=== PATIENT | female | born 1945 | race Caucasian/White ===

== ENCOUNTER → 2017-08-16 | Outpatient (CLI) | payer MEDICARE, OTHER | END | disposition home or self-care (01) | LOC: CT 11:30 | DX: L89.159 Pressure ulcer of sacral region, unspecified stage (principal); I10 Essential (primary) hypertension; E11.9 Type 2 diabetes mellitus without complications; E78.5 Hyperlipidemia, unspecified | CPT/HCPCS: 72192 ==

== ENCOUNTER → 2018-08-20 | Outpatient (CLI) | payer MEDICARE, OTHER ==
[2017-05-16 15:00] VITALS: BP 150/73
[~2018-08-20] MED LIST: ACET325T9 PO; ALBU2.5V14 NEB; AMLO10TA8 PO; ASCO500V4 IJ; Ascorbic Acid PO; BACL20TA PO; CEFP200T PO; CHOL2000 PO; CHOL500021 PO; DOXY100T PO; ESCITALOPRAM OX10 MG PO; FAMO20TA5 PO; FERR325T14 PO; FLUD0.1T PO; LACT1CAP45 PO; LEVO500T8 PO; LINZESS145 MCG PO; LOPE1LIQ7 PO; MAGN400O7 PO; MULT-658 PO; NYST1POW2 PO; PANT40TA3 PO; POLY17PO28 PO; POTA25TA4 PO; PRED20TA PO; SUCR1ORA5 PO; TOLT2TAB4 PO; VIT1TABL94 PO
--- NOTE | 2018-08-20 09:03 | RAD ---
Right ankle, 2 views, 08/20/2018: HISTORY: Open ulcers There is severe patchy bony demineralization. Patient positioning is suboptimal due to the patient's inability to fully cooperate. No fracture, dislocation or destructive bony lesion is identified on this limited exam. Electronically signed by: Chandra Baker MD (08/20/2018 9:01 AM) [facility]
--- NOTE | 2018-08-20 09:06 | RAD ---
Left hip, 2 views, 08/20/2018: HISTORY: Open ulcers There is severe bony demineralization. Mild degenerative change is present at the hip joint. No fracture or dislocation is identified. No destructive bony lesion is seen. IMPRESSION: 1. Demineralization. 2. No acute bony abnormality is detected. Electronically signed by: Chandra Baker MD (08/20/2018 9:03 AM) [facility]
--- NOTE | 2018-08-21 08:32 | RAD ---
Three-phase bone scan, 08/20/2018: HISTORY: Right ankle and left ischio wounds Imaging of both feet was performed following IV injection of 26 mCi of technetium 99m MDP. The study is compromised by difficulties in positioning of this contracted patient. No previous bone scan is available for comparison purposes. The following findings are delineated: 1. The dynamic flow study demonstrates generalized hyperemia about the right ankle. This was also evident on the blood pool images. There is also increased activity at the right ankle on the delayed images, although comparison to the earlier images is difficult due to differences in patient positioning. The degree of increased activity at the right ankle on delayed images appears similar to that seen on the blood pool images suggesting cellulitis. A component of underlying osteomyelitis cannot be excluded. 2. There is a lesser degree of increased activity at the left ankle on all of the phases. This probably reflects arthritis. 3. Several delayed images of the pelvis were also obtained. There is abnormal activity projected over the perineal region at the midline and along the surface of the patient posteriorly at the pelvic and buttock levels. This may represent a combination of soft tissue inflammation and urine contamination. On the posterior view there is markedly increased activity projected over the left ischium raising the possibility of osteomyelitis related to the patient's known wound at that level. Electronically signed by: Chandra Baker MD (08/21/2018 8:29 AM) [facility]
== END | disposition home or self-care (01) ==
LOC: NM 08:13
PROVIDERS: ATTEND Emergency Medicine Undersea and Hyperbaric Medicine
DX: L97.319 Non-pressure chronic ulcer of right ankle with unspecified severity (principal); M81.8 Other osteoporosis without current pathological fracture; M16.12 Unilateral primary osteoarthritis, left hip
CPT/HCPCS: 73502; 73600; 78315; A9503

== ENCOUNTER → 2019-05-14 | Outpatient (CLI) | payer MEDICARE, OTHER ==
[2017-05-16 15:00] VITALS: BP 150/73
[~2019-05-14] MED LIST changes: -PANT40TA3 PO; +PANT40TA77 PO
--- NOTE | 2019-05-14 12:19 | RAD ---
MRI study of the right ankle without contrast Clinical indications: Small open ulcer overlying the lateral malleolus. TECHNIQUE: Noncontrast MRI sequences of the right ankle were performed in all 3 planes. FINDINGS: There is a superficial defect of the lateral soft tissues consistent with the clinical history of a skin ulcer. There is underlying soft tissue thickening. No round fluid collection is seen to indicate a soft tissue abscess however. There is minimal T2 bone marrow edema and T1 marrow signal abnormality of the underlying lateral aspect of the epiphysis. However, the overlying cortex appears intact. Therefore, this may represent mild stress reaction bone marrow edema as opposed to osteomyelitis at this time. No fracture is evident. The mortise ankle joint is intact. No abnormal mortise ankle joint effusion is seen. No abnormal subtalar joint effusion is seen. Sinus tarsi is unremarkable. The peroneal and extensor and flexor tendons are intact. There is increased signal within the Achilles tendon. There is a small high-grade partial tear of the Achilles tendon at the attachment to the posterior aspect of the calcaneus. This tear extends through at least 75% of the thickness of the tendon. The defect measures 3 mm transversely. There is mild adjacent soft tissue edema and there is mild stress reaction bone marrow edema of the adjacent calcaneus. Plantar aponeurosis is intact. IMPRESSION: Soft tissue ulcer of the lateral aspect of the right ankle overlying the lateral malleolus. No underlying soft tissue abscess is seen. There is mild underlying stress reaction bone marrow edema involving the distal epiphysis of the right fibula. However overlying cortex appears intact and therefore no definite osteomyelitis is seen at this time. This may represent stress reaction bone marrow edema. Small high-grade partial tear of the distal Achilles tendon. Electronically signed by: Cory Dyer MD (05/14/2019 12:15 PM) [id number]
== END | disposition home or self-care (01) ==
LOC: MRI 08:41
PROVIDERS: ATTEND Internal Medicine
DX: S86.011A Strain of right Achilles tendon, initial encounter (principal); L97.319 Non-pressure chronic ulcer of right ankle with unspecified severity; X58.XXXA Exposure to other specified factors, initial encounter; Y93.89 Activity, other specified; Y92.89 Other specified places as the place of occurrence of the external cause; Y99.8 Other external cause status
CPT/HCPCS: 73721

== ENCOUNTER 2019-12-30 09:25 | Inpatient (IN) | payer MEDICARE, OTHER ==
[~2019-12-30] VITALS: Ht 152.4 cm; Wt 51.2 kg
[2019-12-30] VITALS (16 sets, daily range): BP systolic 75–133; BP diastolic 32–94
[2019-12-30] MEDS ORDERED: IV NORMAL SALINE 1000ML BAG 1,000 ML IV SCH (09:39)
--- NOTE | 2019-12-30 09:44 | PHYS DOC ---
Past Medical History Past Medical History: CAD, CVA Additional Past Medical Histor: ms,macular deneneration,major depressive disorder,quad,constipation,MS Past Surgical History: Other Additional Past Surgical Histo: unknown Smoking Status: Never Smoker Alcohol Use: None Drug Use: None General Adult EDM: Chief Complaint: DYSPNEA/RESPIRATOY DISTRESS HPI: HPI: Patient is a 74 year old female who presents with a chief complaint of respiratory failure. Patient tested positive for COVID-19 19 days ago but had reportedly gotten better and now has had increased shortness of breath over the last 3 days. Patient arrives via EMS from a group home. Patient sats were in the 70s and respiratory was in the 50s and patient was placed on a nonrebreather. EMS unable to get IV access. Patient is a DO NOT INTUBATE but full code otherwise. Remainder history and review of systems unobtainable due to altered mental status Review of Systems: Review of Systems: Review of systems unobtainable due to altered mental status Heart Score: Risk Factors: Risk Factors: DM, Current or recent (<one month) smoker, HTN, HLP, family history of CAD, obesity. Risk Scores: Score 0 - 3: 2.5% MACE over next 6 weeks - Discharge Home Score 4 - 6: 20.3% MACE over next 6 weeks - Admit for Clinical Observation Score 7 - 10: 72.7% MACE over next 6 weeks - Early Invasive Strategies Current Medications: Current Medications Medications (Trade) Dose Ordered Sig/Sudha Start Time Stop Time Status Last Admin Dose Admin Cefepime HCl (Maxipime) 2 gm 1X ONCE 12/30/19 09:45 12/30/19 09:46 UNV Levofloxacin/ Dextrose 150 ml @ 100 mls/hr 1X ONCE 12/30/19 09:45 12/30/19 11:14 UNV Allergies: Allergies: Allergies Coded Allergies Type Severity Reaction Last Updated Verified Penicillins Allergy Intermediate 01/31/17 Yes Sulfa (Sulfonamide Antibiotics) Allergy Intermediate 01/06/16 Yes codeine Allergy Intermediate 05/12/17 Yes iodine Allergy Intermediate 01/06/16 Yes I S O L A T I O N *CONTACT* Allergy Unknown 05/13/17 Yes Physical Exam: PE: Constitutional: Cachectic in respiratory distress HENT: Normocephalic, dry oral mucosa with food in mouth Eyes: Mild matting to the eyes Neck: No meningeal signs Cardiovascular: Tachycardic, thready peripheral pulses Lungs & Thorax: Diminished breath sounds bilaterally scattered rhonchi Abdomen soft, no tenderness, no masses, no pulsatile masses. [] Skin: Pale, diaphoretic, pressure sores to bilateral heels Back: No tenderness, no CVA tenderness. [] Extremities: No tenderness, no cyanosis, no clubbing, ROM intact, no edema. [] Neurologic: Alert and oriented X 0, frail, generalized weakness, contracted Psychologic: Unable to assess Current Patient Data: Labs: Laboratory Tests Test 12/30/19 10:00 12/30/19 12:05 12/30/19 12:15 O2 Saturation 90 % Arterial Blood pH 7.41 Arterial Blood pCO2 at Patient Temp 37 mmHg Arterial Blood pO2 at Patient Temp 62 mmHg Arterial Blood HCO3 22 mmol/L Arterial Blood Base Excess -2 mmol/L Oxyhemoglobin 89.1 % Methemoglobin 0.4 % Carbon Monoxide, Quantitative 0.0 % FiO2 100 Troponin I Quantitative 0.033 ng/mL Procalcitonin 0.51 ng/mL White Blood Count 20.9 x10^3/uL Red Blood Count 4.88 x10^6/uL Hemoglobin 11.7 g/dL Hematocrit 39.3 % Mean Corpuscular Volume 81 fL Mean Corpuscular Hemoglobin 24 pg Mean Corpuscular Hemoglobin Concent 30 g/dL Red Cell Distribution Width 20.0 % Platelet Count 347 x10^3/uL Neutrophils (%) (Auto) 90 % Lymphocytes (%) (Auto) 5 % Monocytes (%) (Auto) 4 % Eosinophils (%) (Auto) 0 % Basophils (%) (Auto) 0 % Neutrophils # (Auto) 18.8 x10^3/uL Lymphocytes # (Auto) 1.1 x10^3/uL Monocytes # (Auto) 0.9 x10^3/uL Eosinophils # (Auto) 0.0 x10^3/uL Basophils # (Auto) 0.0 x10^3/uL Segmented Neutrophils % 78 % Band Neutrophils % 11 % Lymphocytes % 7 % Monocytes % 4 % Toxic Granulation Slight Platelet Estimate Adequate Hypochromasia Slight Anisocytosis Slight Prothrombin Time 17.8 SEC Prothromb Time International Ratio 1.5 Activated Partial Thromboplast Time 32 SEC Fibrinogen 467 mg/dL D-Dimer (Mer) 3.40 ug/mlFEU Sodium Level 165 mmol/L Potassium Level 3.5 mmol/L Chloride Level 126 mmol/L Carbon Dioxide Level 24 mmol/L Anion Gap 15 Blood Urea Nitrogen 40 mg/dL Creatinine 1.5 mg/dL Estimated GFR (Cockcroft-Gault) 34.1 BUN/Creatinine Ratio 27 Glucose Level 183 mg/dL Lactic Acid Level 4.1 mmol/L Calcium Level 8.1 mg/dL Ferritin 520 ng/mL Total Bilirubin 1.0 mg/dL Aspartate Amino Transf (AST/SGOT) 72 U/L Alanine Aminotransferase (ALT/SGPT) 55 U/L Alkaline Phosphatase 93 U/L Lactate Dehydrogenase 300 U/L Creatine Kinase 73 U/L [id number]-Zzk-[id number]-Type Natriuretic Peptide 1530 pg/mL Total Protein 7.0 g/dL Albumin 2.3 g/dL Albumin/Globulin Ratio 0.5 Lipase 133 U/L Current Medications Medications (Trade) Dose Ordered Sig/Sudha Route PRN Reason Start Time Stop Time Status Last Admin Dose Admin Levofloxacin/ Dextrose 150 ml @ 100 mls/hr 1X ONCE IV 12/30/19 09:45 12/30/19 11:14 DC 12/30/19 11:00 Cefepime HCl (Maxipime) 2 gm 1X ONCE IVP 12/30/19 09:45 12/30/19 09:46 DC 12/30/19 10:55 Sodium Chloride 1,000 ml @ 1,650 mls/hr Q37M IV 12/30/19 09:39 12/30/19 10:39 DC 12/30/19 09:39 Norepinephrine Bitartrate 8 mg/ Dextrose 258 ml @ 10.643 mls/ hr 1X ONCE IV 12/30/19 12:15 12/31/19 12:29 12/30/19 12:33 Vital Signs: Vital Signs Date Time Temp Pulse Resp B/P (MAP) Pulse Ox O2 Delivery O2 Flow Rate FiO2 12/30/19 12:15 122 46 82/53 (63) 89 NonRebreather Mask 15.0 12/30/19 12:00 120 48 93/42 (59) 90 NonRebreather Mask 15.0 12/30/19 11:45 118 54 85/35 (52) 91 NonRebreather Mask 15.0 12/30/19 11:30 122 40 98/40 (59) 77 NonRebreather Mask 15.0 12/30/19 11:15 122 46 104/74 (84) 92 NonRebreather Mask 15.0 12/30/19 10:54 124 44 103/40 (61) 97 NonRebreather Mask 15.0 12/30/19 10:27 130 45 97/72 (80) 97 NonRebreather Mask 15.0 12/30/19 10:00 93 NonRebreather Mask 15.0 12/30/19 09:57 135 48 102/47 (65) 95 NonRebreather Mask 15.0 12/30/19 09:55 135 50 89/51 (64) 91 NonRebreather Mask 15.0 12/30/19 09:25 100.7 137 50 89/51 (64) 55 NonRebreather Mask 15.0 100.7 EKG: EKG: EKG interpreted by me sinus tachycardia with a rate of 135 normal axis normal intervals nonspecific ST changes [] Radiology/Procedures: Radiology/Procedures: [][facility] [address] [place] [address] IMAGING REPORT Signed PATIENT: JAIDA ZAMARRIPA SACCOUNT: [id number] : 1945 LOCATION: ER AGE: 74 SEX: F EXAM STATUS: REG ER ORD. PHYSICIAN: MINA FIGUEROA MD REASON: soa, covid pos 12/10 PROCEDURE: PORTABLE CHEST 1V AP chest. HISTORY: Short of air, Covid positive Heart is normal in size. The patient is rotated to the right. There is no pleural effusion. There are no confluent infiltrates. IMPRESSION: 1. No acute infiltrates. Electronically signed by: Carlos Rojas MD (12/30/2019 11:34 AM) [id number] DICTATED and SIGNED BY: CARLOS ROJAS MD DATE: 12/30/19 1134 Course & Med Decision Making: Course & Med Decision Making Pertinent Labs and Imaging studies reviewed. (See chart for details) [] Reassessment at 10:55 AM: Blood pressure now around 100 systolic, oxygen satu ration 95% Indication: Vascular access Consent: Emergency nature and patient's altered mental status prohibited consent prior to procedure Procedure: The patient was positioned appropriately and the skin over the [RIGHT femoral [VEIN] was prepped and draped in a sterile fashion. Local anesthesia was used. . A large bore needle was used to identify the vein. A guide wire was then inserted into the vein through the needle. A triple lumen catheter was then inserted into the vessel over the guide wire using the Seldinger technique. All ports showed good, free flowing blood return and were flushed with saline solution. The catheter was then securely fastened to the skin with sutures and covered with a sterile dressing. The patient tolerated the procedure well. Complications: none 74-year-old female with recent coronavirus 3 weeks ago presents with 3-day history of respiratory failure. Patient is critically ill on my assessment. According to the chart which I verified the patient is a DO NOT INTUBATE. Patient given sepsis bundle of fluids but her blood pressure remained low so central line was placed and she was started on Levophed and dopamine. Patient given broad-spectrum antibiotics. Patient assessed multiple times and is critically ill. Discussed the case with her brother who is her POA and updated him on the status. Patient will be admitted to Dr. Sommer to the ICU. Critical conditions: Septic shock, respiratory failure, COVID-19, hyponatremia Critical interventions: Sepsis bundle, central line placement, multiple reassessments, admission ICU, broad-spectrum antibiotics Dragon Disclaimer: Michael Disclaimer: This electronic medical record was generated, in whole or in part, using a voice recognition dictation system. COVID-19 Patient Risks: Age 65 or older: Yes Sign of co-morbidity: Yes Exp to person + for COVID: Yes Exp to PUI: Yes Travel from affected area: No Lower respiratory symptoms: Yes Fever: Yes Comments: pos covid 19 days ago PPE Use: Full PPE with N95 mask or PAPR: Yes (with face shield, double gloves, n95, surgical mask, eye protection, gown) Departure Departure Impression: Primary Impression: Respiratory failure Additional Impressions: COVID-19 Hypernatremia Septic shock Disposition: ADMITTED INPATIENT Admitting Physician: Madi. DeL a Paz Condition: CRITICAL Referrals: TOMI SOMMER MD (PCP) Justicifation of Admission Dx: Justifications for Admission: Justification of Admission Dx: Yes Respiratory Failure: Severe Resp Distress Date and Time of Reassessment Date: Dec 30, 2019 Time: 11:00 Fluid Challenge Is the fluid challenge complet: No IBW Target Volume Used: No BMI > 30: No Vital Signs Vital Signs: Vital Signs Date Time Temp Pulse Resp B/P (MAP) Pulse Ox O2 Delivery O2 Flow Rate FiO2 12/30/19 10:54 124 44 103/40 (61) 97 NonRebreather Mask 15.0 12/30/19 10:27 130 45 97/72 (80) 97 NonRebreather Mask 15.0 12/30/19 10:00 93 NonRebreather Mask 15.0 12/30/19 09:57 135 48 102/47 (65) 95 NonRebreather Mask 15.0 12/30/19 09:55 135 50 89/51 (64) 91 NonRebreather Mask 15.0 12/30/19 09:25 100.7 137 50 89/51 (64) 55 NonRebreather Mask 15.0 100.7 Vital Signs Date Time Temp Pulse Resp B/P (MAP) Pulse Ox O2 Delivery O2 Flow Rate FiO2 12/30/19 10:54 124 44 103/40 (61) 97 NonRebreather Mask 15.0 12/30/19 09:25 100.7 100.7 Temperature Source: Axillary Respirations Respiratory Effort: Labored, Retracting Respiratory Pattern: Tachypnea Cardiovascular Pulse Rhythm: Regular (TACHCARDIC) Heart: Nml rate, reg. rhythm (tachy) Lung Sounds Breath Sounds: Rhonchi Capillary Refil Capillary Refill: Rt Hand > 3 seconds Peripheral Pulse Pulse Location: Radial Pulse Strength: Weak (1+) Pulse Assessment Method: Monitor Integumentary Skin: Diaphoretic Skin Moisture: Clammy Skin Turgor: Decreased Skin Color: moist Fingernail Color: WNL MINA FIGUEROA MD Dec 30, 2019 09:44
[2019-12-30] MEDS ORDERED: CEFEPIME HCL IV Push 2 GM VIAL. IVP ONE (09:45)
[2019-12-30 10:13] LABS: BASE EXCESS COOX -2 mmol/L (-3-3); HCO3 COOX 22 mmol/L (21-28); METHEMOGLOBIN 0.4 % (0.0-1.9); OXYHEMOGLOBIN 89.1 %; PCO2 COOX 37 mmHg (35-46); PO2 COOX 62 mmHg (65-108); SAT O2 COOX 90 % (92-99)
--- NOTE | 2019-12-30 10:58 | EKG ---
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
--- NOTE | 2019-12-30 11:37 | RAD ---
AP chest. HISTORY: Short of air, Covid positive Heart is normal in size. The patient is rotated to the right. There is no pleural effusion. There are no confluent infiltrates. IMPRESSION: 1. No acute infiltrates. Electronically signed by: Carlos Rojas MD (12/30/2019 11:34 AM) [id number]
[2019-12-30] MEDS ORDERED: NOREPINEPHRINE VIAL 8 MG in IV DEXTROSE 5% 250 ML IV ONE (12:15)
[2019-12-30 12:47] LABS: BASO % 0 % (0-3); EOS % 0 % (0-3); HEMATOCRIT 39.3 % (36.0-47.0); HEMOGLOBIN 11.7 g/dL (12.0-15.5); LYMPH # 1.1 x10^3/uL (1.0-4.8); LYMPH % 5 % (24-48); MEAN CORPUSCULAR HEMOGLOBIN 24 pg (25-35); MEAN CORPUSCULAR HGB CONC 30 g/dL (31-37); MEAN CORPUSCULAR VOLUME 81 fL (79-100); MONO # 0.9 x10^3/uL (0.0-1.1); MONO % 4 % (0-9); NEUT # 18.8 x10^3/uL (1.8-7.7); NEUT % 90 % (31-73); PLATELET COUNT 347 x10^3/uL (140-400); RED BLOOD COUNT 4.88 x10^6/uL (3.50-5.40); WHITE BLOOD COUNT 20.9 x10^3/uL (4.0-11.0)
[2019-12-30] MEDS ORDERED: ONDANSETRON PF 4 MG/2 ML VIAL. IV PRN (13:00)
[2019-12-30 13:06] LABS: PROTHROMBIN TIME PATIENT 17.8 SEC (11.7-14.0)
[2019-12-30 13:09] LABS: D-DIMER 3.4 ug/mlFEU (0.00-0.50)
[2019-12-30 13:42] LABS: % BANDS 11 % (0-9); % LYMPHS 7 % (24-48); % MONOS 4 % (0-10); % SEGS 78 % (35-66)
[2019-12-30 13:44] LABS: ANISOCYTOSIS SLIGHT; HYPOCHROMIA SLIGHT; PLT ESTIMATE ADEQUATE (ADEQUATE); TOXIC GRANULATION SLIGHT
[2019-12-30 13:56] LABS: ALBUMIN 2.3 g/dL (3.4-5.0); ALBUMIN/GLOBULIN RATIO 0.5 (1.0-1.7); CALCIUM 8.1 mg/dL (8.5-10.1); CREATININE 1.5 mg/dL (0.6-1.0); GFR 34.1; POTASSIUM 3.5 mmol/L (3.5-5.1)
[2019-12-30] MEDS ORDERED: FAMO20TA5 PO (15:31)
[2019-12-30] MEDS ORDERED: ZINC220T3 PO (15:31)
[2019-12-30] MEDS ORDERED: BISA-42 PO (15:31)
[2019-12-30] MEDS ORDERED: METF-658 PO (15:31)
--- NOTE | 2019-12-30 16:51 | PDOC ---
PULMONARY PROGRESS NOTES DATE: 12/30/19 TIME: 16:50 Vitals Vital Signs Date Time Temp Pulse Resp B/P (MAP) Pulse Ox O2 Delivery O2 Flow Rate FiO2 12/30/19 14:35 135 44 78/60 (66) 84 NonRebreather Mask 15.0 12/30/19 09:25 100.7 100.7 General: Alert HEENT: Other Lungs: Crackles, Other Cardiovascular: S1, S2 Abdomen: Soft, Non-tender Extremities: No Edema Skin: Diaphoretic Labs Laboratory Tests Test 12/30/19 10:00 12/30/19 12:05 12/30/19 12:15 O2 Saturation 90 % (92-99) Arterial Blood pH 7.41 (7.35-7.45) Arterial Blood pCO2 at Patient Temp 37 mmHg (35-46) Arterial Blood pO2 at Patient Temp 62 mmHg (65-108) Arterial Blood HCO3 22 mmol/L (21-28) Arterial Blood Base Excess -2 mmol/L (-3-3) Oxyhemoglobin 89.1 % Methemoglobin 0.4 % (0.0-1.9) Carbon Monoxide, Quantitative 0.0 % (0.0-1.9) FiO2 100 Troponin I Quantitative 0.033 ng/mL (0.000-0.055) Procalcitonin 0.51 ng/mL (0.00-0.10) White Blood Count 20.9 x10^3/uL (4.0-11.0) Red Blood Count 4.88 x10^6/uL (3.50-5.40) Hemoglobin 11.7 g/dL (12.0-15.5) Hematocrit 39.3 % (36.0-47.0) Mean Corpuscular Volume 81 fL (79-100) Mean Corpuscular Hemoglobin 24 pg (25-35) Mean Corpuscular Hemoglobin Concent 30 g/dL (31-37) Red Cell Distribution Width 20.0 % (11.5-14.5) Platelet Count 347 x10^3/uL (140-400) Neutrophils (%) (Auto) 90 % (31-73) Lymphocytes (%) (Auto) 5 % (24-48) Monocytes (%) (Auto) 4 % (0-9) Eosinophils (%) (Auto) 0 % (0-3) Basophils (%) (Auto) 0 % (0-3) Neutrophils # (Auto) 18.8 x10^3/uL (1.8-7.7) Lymphocytes # (Auto) 1.1 x10^3/uL (1.0-4.8) Monocytes # (Auto) 0.9 x10^3/uL (0.0-1.1) Eosinophils # (Auto) 0.0 x10^3/uL (0.0-0.7) Basophils # (Auto) 0.0 x10^3/uL (0.0-0.2) Segmented Neutrophils % 78 % (35-66) Band Neutrophils % 11 % (0-9) Lymphocytes % 7 % (24-48) Monocytes % 4 % (0-10) Toxic Granulation Slight Platelet Estimate Adequate (ADEQUATE) Hypochromasia Slight Anisocytosis Slight Prothrombin Time 17.8 SEC (11.7-14.0) Prothromb Time International Ratio 1.5 (0.8-1.1) Activated Partial Thromboplast Time 32 SEC (24-38) Fibrinogen 467 mg/dL (200-440) D-Dimer (Mer) 3.40 ug/mlFEU (0.00-0.50) Sodium Level 165 mmol/L (136-145) Potassium Level 3.5 mmol/L (3.5-5.1) Chloride Level 126 mmol/L (98-107) Carbon Dioxide Level 24 mmol/L (21-32) Anion Gap 15 (6-14) Blood Urea Nitrogen 40 mg/dL (7-20) Creatinine 1.5 mg/dL (0.6-1.0) Estimated GFR (Cockcroft-Gault) 34.1 BUN/Creatinine Ratio 27 (6-20) Glucose Level 183 mg/dL (70-99) Lactic Acid Level 4.1 mmol/L (0.4-2.0) Calcium Level 8.1 mg/dL (8.5-10.1) Ferritin 520 ng/mL (8-252) Total Bilirubin 1.0 mg/dL (0.2-1.0) Aspartate Amino Transf (AST/SGOT) 72 U/L (15-37) Alanine Aminotransferase (ALT/SGPT) 55 U/L (14-59) Alkaline Phosphatase 93 U/L (46-116) Lactate Dehydrogenase 300 U/L (81-234) Creatine Kinase 73 U/L (26-192) RZ-Yzy-T-Type Natriuretic Peptide 1530 pg/mL (0-124) Total Protein 7.0 g/dL (6.4-8.2) Albumin 2.3 g/dL (3.4-5.0) Albumin/Globulin Ratio 0.5 (1.0-1.7) Lipase 133 U/L (73-393) Laboratory Tests Test 12/30/19 10:00 12/30/19 12:05 12/30/19 12:15 O2 Saturation 90 % (92-99) Arterial Blood pH 7.41 (7.35-7.45) Arterial Blood pCO2 at Patient Temp 37 mmHg (35-46) Arterial Blood pO2 at Patient Temp 62 mmHg (65-108) Arterial Blood HCO3 22 mmol/L (21-28) Arterial Blood Base Excess -2 mmol/L (-3-3) Oxyhemoglobin 89.1 % Methemoglobin 0.4 % (0.0-1.9) Carbon Monoxide, Quantitative 0.0 % (0.0-1.9) FiO2 100 Troponin I Quantitative 0.033 ng/mL (0.000-0.055) Procalcitonin 0.51 ng/mL (0.00-0.10) White Blood Count 20.9 x10^3/uL (4.0-11.0) Red Blood Count 4.88 x10^6/uL (3.50-5.40) Hemoglobin 11.7 g/dL (12.0-15.5) Hematocrit 39.3 % (36.0-47.0) Mean Corpuscular Volume 81 fL (79-100) Mean Corpuscular Hemoglobin 24 pg (25-35) Mean Corpuscular Hemoglobin Concent 30 g/dL (31-37) Red Cell Distribution Width 20.0 % (11.5-14.5) Platelet Count 347 x10^3/uL (140-400) Neutrophils (%) (Auto) 90 % (31-73) Lymphocytes (%) (Auto) 5 % (24-48) Monocytes (%) (Auto) 4 % (0-9) Eosinophils (%) (Auto) 0 % (0-3) Basophils (%) (Auto) 0 % (0-3) Neutrophils # (Auto) 18.8 x10^3/uL (1.8-7.7) Lymphocytes # (Auto) 1.1 x10^3/uL (1.0-4.8) Monocytes # (Auto) 0.9 x10^3/uL (0.0-1.1) Eosinophils # (Auto) 0.0 x10^3/uL (0.0-0.7) Basophils # (Auto) 0.0 x10^3/uL (0.0-0.2) Segmented Neutrophils % 78 % (35-66) Band Neutrophils % 11 % (0-9) Lymphocytes % 7 % (24-48) Monocytes % 4 % (0-10) Toxic Granulation Slight Platelet Estimate Adequate (ADEQUATE) Hypochromasia Slight Anisocytosis Slight Prothrombin Time 17.8 SEC (11.7-14.0) Prothromb Time International Ratio 1.5 (0.8-1.1) Activated Partial Thromboplast Time 32 SEC (24-38) Fibrinogen 467 mg/dL (200-440) D-Dimer (Mer) 3.40 ug/mlFEU (0.00-0.50) Sodium Level 165 mmol/L (136-145) Potassium Level 3.5 mmol/L (3.5-5.1) Chloride Level 126 mmol/L (98-107) Carbon Dioxide Level 24 mmol/L (21-32) Anion Gap 15 (6-14) Blood Urea Nitrogen 40 mg/dL (7-20) Creatinine 1.5 mg/dL (0.6-1.0) Estimated GFR (Cockcroft-Gault) 34.1 BUN/Creatinine Ratio 27 (6-20) Glucose Level 183 mg/dL (70-99) Lactic Acid Level 4.1 mmol/L (0.4-2.0) Calcium Level 8.1 mg/dL (8.5-10.1) Ferritin 520 ng/mL (8-252) Total Bilirubin 1.0 mg/dL (0.2-1.0) Aspartate Amino Transf (AST/SGOT) 72 U/L (15-37) Alanine Aminotransferase (ALT/SGPT) 55 U/L (14-59) Alkaline Phosphatase 93 U/L (46-116) Lactate Dehydrogenase 300 U/L (81-234) Creatine Kinase 73 U/L (26-192) RS-Lzw-M-Type Natriuretic Peptide 1530 pg/mL (0-124) Total Protein 7.0 g/dL (6.4-8.2) Albumin 2.3 g/dL (3.4-5.0) Albumin/Globulin Ratio 0.5 (1.0-1.7) Lipase 133 U/L (73-393) Medications Active Scripts Medications Dose Route/Sig Max Daily Dose Days Date Category Metformin Hcl Er (Metformin Hcl) 500 Mg Tab.er.24h 500 Mg PO BIDWMEALS 12/30/19 Reported Zinc Sulfate 220 Mg Tablet 1 Tab PO DAILY 30 12/30/19 Reported Famotidine 20 Mg Tablet 20 Mg PO HS 12/30/19 Reported Dulcolax (Bisacodyl) 5 Mg Tablet.dr 2 Tab PO UD 1 12/30/19 Reported [Ascorbic Acid] 500 Mg PO BID 05/12/17 Reported Vitamin D (Cholecalciferol (Vitamin D3)) 2,000 Unit Capsule 2,000 Unit PO DAILY 01/05/16 Reported Tylenol (Acetaminophen) 325 Mg Tablet 650 Mg PO PRN Q6HRS PRN 01/05/16 Reported Polyethylene Glycol 3350 17 Gm Powd.pack 17 Gm PO DAILY 01/05/16 Reported Milk Of Magnesia (Magnesium Hydroxide) 400 Mg/5 Ml Oral.susp 400 Mg PO PRN DAILY PRN 01/05/16 Reported Linzess (Linaclotide) 145 Mcg Capsule 145 Mcg PO DAILY 01/05/16 Reported Escitalopram Oxalate 10 Mg Tablet 10 Mg PO DAILY 01/05/16 Reported Lacto-Pectin Capsule (Lactobac. No.33/B.breve,Longum) 1 Each Capsule 1 Each PO BID 01/05/16 Reported Eye Vitamin-Minerals Tablet (Vit A/C/E AC/Znox/Cupric Oxide) 1 Each Tablet 1 Each PO BID 01/05/16 Reported D3-50 (Cholecalciferol (Vitamin D3)) 50,000 Unit Capsule 50,000 Unit PO QM 01/05/16 Reported Centrum Silver Tablet (Multivits-Min/Fa/Lycopene/Lut) 1 Each Tablet 1 Each PO DAILY 01/05/16 Reported Baclofen 20 Mg Tablet 20 Mg PO BID 01/05/16 Reported Amlodipine Besylate 10 Mg Tablet 10 Mg PO DAILY 01/05/16 Reported Impression . Full note to be dictated Discussed with RN, reviewed data chest x-ray and arterial blood gas Patient at high risk for thromboembolic disease will obtain bilateral venous Dopplers of the lower extremities and VQ scan Initiate Lovenox 1 mg/kg for presumptive PE OSMAN PALOMARES MD Dec 30, 2019 16:51
[2019-12-30] MEDS: NOREPINEPHRINE VIAL 8 MG in IV DEXTROSE 5% 250 ML IV PRN ×2 (17:21→21:16)
[2019-12-30] MEDS: IV NORMAL SALINE 1000ML BAG 1,000 ML IV SCH (22:00)
--- NOTE | 2019-12-30 23:13 | RAD ---
EXAMINATION: VENOUS LOWER EXT BILATERAL HISTORY: Respiratory failure. COVID-19 positive. COMPARISON/CORRELATION: None FINDINGS: Bilateral lower extremity duplex venous ultrasound exam was performed. Grayscale, color Doppler, and spectral Doppler imaging was performed. Compression and augmentation was performed. Imaging is very limited due to the patient's condition and inability to adequately positioned. The right superficial femoral vein, and popliteal vein are normal with no evidence of deep venous thrombus. Right posterior tibial vein is unremarkable. Compressibility of calf veins could not be performed. Common femoral vein and greater saphenous vein junction could not be imaged. Left popliteal vein is unremarkable. Other left lower extremity venous structures are not adequately imaged due to patient condition. IMPRESSION: No right lower extremity DVT identified but this exam is very limited. Extremely limited evaluation of the left lower extremity venous system. Left popliteal vein is unremarkable. Otherwise exam is nondiagnostic for assessment of the left lower extremity venous system. Electronically signed by: Nemesio Win MD (12/30/2019 11:09 PM) [id number]
[2019-12-31] VITALS (28 sets, daily range): BP systolic 75–144; BP diastolic 42–66
[2019-12-31] MEDS: NOREPINEPHRINE VIAL 8 MG in IV DEXTROSE 5% 250 ML IV PRN ×2 (00:41→05:53)
[2019-12-31] MEDS: IV NORMAL SALINE 1000ML BAG 1,000 ML IV SCH ×3 (04:40→16:52)
[2019-12-31] MEDS: MEROPENEM 500 MG in IV NORMAL SALINE 50ML 50 ML IV SCH ×3 (06:14→21:39)
[2019-12-31 06:52] LABS: ALBUMIN 1.8 g/dL (3.4-5.0); ALBUMIN/GLOBULIN RATIO 0.5 (1.0-1.7); C-REACTIVE PROTEIN 239.1 mg/L (0-3.3); CALCIUM 7.3 mg/dL (8.5-10.1); CREATININE 1.2 mg/dL (0.6-1.0); GFR 44.2; HEMATOCRIT 33.5 % (36.0-47.0); RED BLOOD COUNT 4.1 x10^6/uL (3.50-5.40); RED CELL DISTRIBUTION WIDTH 19.4 % (11.5-14.5); TOTAL BILIRUBIN 0.5 mg/dL (0.2-1.0); TOTAL PROTEIN 5.2 g/dL (6.4-8.2); WHITE BLOOD COUNT 18.4 x10^3/uL (4.0-11.0)
[2019-12-31 06:56] LABS: POTASSIUM 2.8 mmol/L (3.5-5.1)
[2019-12-31] MEDS: POTASSIUM CHLORIDE 40 MEQ in IV DEXTROSE 5% 1,000 ML IV SCH ×2 (07:33→20:21)
--- NOTE | 2019-12-31 07:54 | PDOC ---
Infectious Disease Note Vital Sign Vital Signs Vital Signs Date Time Temp Pulse Resp B/P (MAP) Pulse Ox O2 Delivery O2 Flow Rate FiO2 12/31/19 06:00 107 32 108/60 (76) 99 NonRebreather Mask 12/31/19 04:00 99.9 99.9 12/30/19 14:35 15.0 Labs Lab Laboratory Tests Test 12/30/19 10:00 12/30/19 12:05 12/30/19 12:15 12/30/19 20:15 O2 Saturation 90 % (92-99) Arterial Blood pH 7.41 (7.35-7.45) Arterial Blood pCO2 at Patient Temp 37 mmHg (35-46) Arterial Blood pO2 at Patient Temp 62 mmHg (65-108) Arterial Blood HCO3 22 mmol/L (21-28) Arterial Blood Base Excess -2 mmol/L (-3-3) Oxyhemoglobin 89.1 % Methemoglobin 0.4 % (0.0-1.9) Carbon Monoxide, Quantitative 0.0 % (0.0-1.9) FiO2 100 Troponin I Quantitative 0.033 ng/mL (0.000-0.055) Procalcitonin 0.51 ng/mL (0.00-0.10) White Blood Count 20.9 x10^3/uL (4.0-11.0) Red Blood Count 4.88 x10^6/uL (3.50-5.40) Hemoglobin 11.7 g/dL (12.0-15.5) Hematocrit 39.3 % (36.0-47.0) Mean Corpuscular Volume 81 fL (79-100) Mean Corpuscular Hemoglobin 24 pg (25-35) Mean Corpuscular Hemoglobin Concent 30 g/dL (31-37) Red Cell Distribution Width 20.0 % (11.5-14.5) Platelet Count 347 x10^3/uL (140-400) Neutrophils (%) (Auto) 90 % (31-73) Lymphocytes (%) (Auto) 5 % (24-48) Monocytes (%) (Auto) 4 % (0-9) Eosinophils (%) (Auto) 0 % (0-3) Basophils (%) (Auto) 0 % (0-3) Neutrophils # (Auto) 18.8 x10^3/uL (1.8-7.7) Lymphocytes # (Auto) 1.1 x10^3/uL (1.0-4.8) Monocytes # (Auto) 0.9 x10^3/uL (0.0-1.1) Eosinophils # (Auto) 0.0 x10^3/uL (0.0-0.7) Basophils # (Auto) 0.0 x10^3/uL (0.0-0.2) Segmented Neutrophils % 78 % (35-66) Band Neutrophils % 11 % (0-9) Lymphocytes % 7 % (24-48) Monocytes % 4 % (0-10) Toxic Granulation Slight Platelet Estimate Adequate (ADEQUATE) Hypochromasia Slight Anisocytosis Slight Prothrombin Time 17.8 SEC (11.7-14.0) Prothromb Time International Ratio 1.5 (0.8-1.1) Activated Partial Thromboplast Time 32 SEC (24-38) Fibrinogen 467 mg/dL (200-440) D-Dimer (Mer) 3.40 ug/mlFEU (0.00-0.50) Sodium Level 165 mmol/L (136-145) Potassium Level 3.5 mmol/L (3.5-5.1) Chloride Level 126 mmol/L (98-107) Carbon Dioxide Level 24 mmol/L (21-32) Anion Gap 15 (6-14) Blood Urea Nitrogen 40 mg/dL (7-20) Creatinine 1.5 mg/dL (0.6-1.0) Estimated GFR (Cockcroft-Gault) 34.1 BUN/Creatinine Ratio 27 (6-20) Glucose Level 183 mg/dL (70-99) Lactic Acid Level 4.1 mmol/L (0.4-2.0) 6.9 mmol/L (0.4-2.0) Calcium Level 8.1 mg/dL (8.5-10.1) Ferritin 520 ng/mL (8-252) Total Bilirubin 1.0 mg/dL (0.2-1.0) Aspartate Amino Transf (AST/SGOT) 72 U/L (15-37) Alanine Aminotransferase (ALT/SGPT) 55 U/L (14-59) Alkaline Phosphatase 93 U/L (46-116) Lactate Dehydrogenase 300 U/L (81-234) Creatine Kinase 73 U/L (26-192) CS-Gpj-Q-Type Natriuretic Peptide 1530 pg/mL (0-124) Total Protein 7.0 g/dL (6.4-8.2) Albumin 2.3 g/dL (3.4-5.0) Albumin/Globulin Ratio 0.5 (1.0-1.7) Lipase 133 U/L (73-393) Test 12/31/19 06:14 White Blood Count 18.4 x10^3/uL (4.0-11.0) Red Blood Count 4.10 x10^6/uL (3.50-5.40) Hemoglobin 10.0 g/dL (12.0-15.5) Hematocrit 33.5 % (36.0-47.0) Mean Corpuscular Volume 82 fL (79-100) Mean Corpuscular Hemoglobin 24 pg (25-35) Mean Corpuscular Hemoglobin Concent 30 g/dL (31-37) Red Cell Distribution Width 19.4 % (11.5-14.5) Platelet Count 214 x10^3/uL (140-400) Sodium Level 164 mmol/L (136-145) Potassium Level 2.8 mmol/L (3.5-5.1) Chloride Level 128 mmol/L (98-107) Carbon Dioxide Level 22 mmol/L (21-32) Anion Gap 14 (6-14) Blood Urea Nitrogen 35 mg/dL (7-20) Creatinine 1.2 mg/dL (0.6-1.0) Estimated GFR (Cockcroft-Gault) 44.2 BUN/Creatinine Ratio 29 (6-20) Glucose Level 240 mg/dL (70-99) Lactic Acid Level 4.0 mmol/L (0.4-2.0) Calcium Level 7.3 mg/dL (8.5-10.1) Total Bilirubin 0.5 mg/dL (0.2-1.0) Aspartate Amino Transf (AST/SGOT) 76 U/L (15-37) Alanine Aminotransferase (ALT/SGPT) 48 U/L (14-59) Alkaline Phosphatase 74 U/L (46-116) C-Reactive Protein, Quantitative 239.1 mg/L (0-3.3) Total Protein 5.2 g/dL (6.4-8.2) Albumin 1.8 g/dL (3.4-5.0) Albumin/Globulin Ratio 0.5 (1.0-1.7) Objective Assessment ? sepsis - on Levophed ? Urine source but unable to collect Acute Hypoxic resp failure - CXR clear Abx allergies - has tolerated Cephalosporins YARI Hyperatremia Encephalopathy recent COVID H/o MRSA + Plan Plan of Care Agree with Meropenem and Zyvox Dose Daptomycin F/u labs and cults/COVID Davies to attempted again. Will need to monitor for retention if not able to place 35 min CC time D/w nursing Thank you # [id number] ISELA RODRIGUES MD Dec 31, 2019 07:54
--- NOTE | 2019-12-31 08:16 | PDOC ---
PULMONARY PROGRESS NOTES DATE: 12/31/19 TIME: 08:16 Vitals Vital Signs Date Time Temp Pulse Resp B/P (MAP) Pulse Ox O2 Delivery O2 Flow Rate FiO2 12/31/19 06:00 107 32 108/60 (76) 99 NonRebreather Mask 12/31/19 04:00 99.9 99.9 12/30/19 14:35 15.0 General: Alert HEENT: Other Lungs: Crackles, Other Cardiovascular: S1, S2 Abdomen: Soft, Non-tender Extremities: No Edema Skin: Diaphoretic Labs Laboratory Tests Test 12/30/19 10:00 12/30/19 12:05 12/30/19 12:15 12/30/19 20:15 O2 Saturation 90 % (92-99) Arterial Blood pH 7.41 (7.35-7.45) Arterial Blood pCO2 at Patient Temp 37 mmHg (35-46) Arterial Blood pO2 at Patient Temp 62 mmHg (65-108) Arterial Blood HCO3 22 mmol/L (21-28) Arterial Blood Base Excess -2 mmol/L (-3-3) Oxyhemoglobin 89.1 % Methemoglobin 0.4 % (0.0-1.9) Carbon Monoxide, Quantitative 0.0 % (0.0-1.9) FiO2 100 Troponin I Quantitative 0.033 ng/mL (0.000-0.055) Procalcitonin 0.51 ng/mL (0.00-0.10) White Blood Count 20.9 x10^3/uL (4.0-11.0) Red Blood Count 4.88 x10^6/uL (3.50-5.40) Hemoglobin 11.7 g/dL (12.0-15.5) Hematocrit 39.3 % (36.0-47.0) Mean Corpuscular Volume 81 fL (79-100) Mean Corpuscular Hemoglobin 24 pg (25-35) Mean Corpuscular Hemoglobin Concent 30 g/dL (31-37) Red Cell Distribution Width 20.0 % (11.5-14.5) Platelet Count 347 x10^3/uL (140-400) Neutrophils (%) (Auto) 90 % (31-73) Lymphocytes (%) (Auto) 5 % (24-48) Monocytes (%) (Auto) 4 % (0-9) Eosinophils (%) (Auto) 0 % (0-3) Basophils (%) (Auto) 0 % (0-3) Neutrophils # (Auto) 18.8 x10^3/uL (1.8-7.7) Lymphocytes # (Auto) 1.1 x10^3/uL (1.0-4.8) Monocytes # (Auto) 0.9 x10^3/uL (0.0-1.1) Eosinophils # (Auto) 0.0 x10^3/uL (0.0-0.7) Basophils # (Auto) 0.0 x10^3/uL (0.0-0.2) Segmented Neutrophils % 78 % (35-66) Band Neutrophils % 11 % (0-9) Lymphocytes % 7 % (24-48) Monocytes % 4 % (0-10) Toxic Granulation Slight Platelet Estimate Adequate (ADEQUATE) Hypochromasia Slight Anisocytosis Slight Prothrombin Time 17.8 SEC (11.7-14.0) Prothromb Time International Ratio 1.5 (0.8-1.1) Activated Partial Thromboplast Time 32 SEC (24-38) Fibrinogen 467 mg/dL (200-440) D-Dimer (Mer) 3.40 ug/mlFEU (0.00-0.50) Sodium Level 165 mmol/L (136-145) Potassium Level 3.5 mmol/L (3.5-5.1) Chloride Level 126 mmol/L (98-107) Carbon Dioxide Level 24 mmol/L (21-32) Anion Gap 15 (6-14) Blood Urea Nitrogen 40 mg/dL (7-20) Creatinine 1.5 mg/dL (0.6-1.0) Estimated GFR (Cockcroft-Gault) 34.1 BUN/Creatinine Ratio 27 (6-20) Glucose Level 183 mg/dL (70-99) Lactic Acid Level 4.1 mmol/L (0.4-2.0) 6.9 mmol/L (0.4-2.0) Calcium Level 8.1 mg/dL (8.5-10.1) Ferritin 520 ng/mL (8-252) Total Bilirubin 1.0 mg/dL (0.2-1.0) Aspartate Amino Transf (AST/SGOT) 72 U/L (15-37) Alanine Aminotransferase (ALT/SGPT) 55 U/L (14-59) Alkaline Phosphatase 93 U/L (46-116) Lactate Dehydrogenase 300 U/L (81-234) Creatine Kinase 73 U/L (26-192) MH-Ydf-S-Type Natriuretic Peptide 1530 pg/mL (0-124) Total Protein 7.0 g/dL (6.4-8.2) Albumin 2.3 g/dL (3.4-5.0) Albumin/Globulin Ratio 0.5 (1.0-1.7) Lipase 133 U/L (73-393) Test 12/31/19 06:14 White Blood Count 18.4 x10^3/uL (4.0-11.0) Red Blood Count 4.10 x10^6/uL (3.50-5.40) Hemoglobin 10.0 g/dL (12.0-15.5) Hematocrit 33.5 % (36.0-47.0) Mean Corpuscular Volume 82 fL (79-100) Mean Corpuscular Hemoglobin 24 pg (25-35) Mean Corpuscular Hemoglobin Concent 30 g/dL (31-37) Red Cell Distribution Width 19.4 % (11.5-14.5) Platelet Count 214 x10^3/uL (140-400) Sodium Level 164 mmol/L (136-145) Potassium Level 2.8 mmol/L (3.5-5.1) Chloride Level 128 mmol/L (98-107) Carbon Dioxide Level 22 mmol/L (21-32) Anion Gap 14 (6-14) Blood Urea Nitrogen 35 mg/dL (7-20) Creatinine 1.2 mg/dL (0.6-1.0) Estimated GFR (Cockcroft-Gault) 44.2 BUN/Creatinine Ratio 29 (6-20) Glucose Level 240 mg/dL (70-99) Lactic Acid Level 4.0 mmol/L (0.4-2.0) Calcium Level 7.3 mg/dL (8.5-10.1) Total Bilirubin 0.5 mg/dL (0.2-1.0) Aspartate Amino Transf (AST/SGOT) 76 U/L (15-37) Alanine Aminotransferase (ALT/SGPT) 48 U/L (14-59) Alkaline Phosphatase 74 U/L (46-116) C-Reactive Protein, Quantitative 239.1 mg/L (0-3.3) Total Protein 5.2 g/dL (6.4-8.2) Albumin 1.8 g/dL (3.4-5.0) Albumin/Globulin Ratio 0.5 (1.0-1.7) Laboratory Tests Test 12/30/19 10:00 12/30/19 12:05 12/30/19 12:15 12/30/19 20:15 O2 Saturation 90 % (92-99) Arterial Blood pH 7.41 (7.35-7.45) Arterial Blood pCO2 at Patient Temp 37 mmHg (35-46) Arterial Blood pO2 at Patient Temp 62 mmHg (65-108) Arterial Blood HCO3 22 mmol/L (21-28) Arterial Blood Base Excess -2 mmol/L (-3-3) Oxyhemoglobin 89.1 % Methemoglobin 0.4 % (0.0-1.9) Carbon Monoxide, Quantitative 0.0 % (0.0-1.9) FiO2 100 Troponin I Quantitative 0.033 ng/mL (0.000-0.055) Procalcitonin 0.51 ng/mL (0.00-0.10) White Blood Count 20.9 x10^3/uL (4.0-11.0) Red Blood Count 4.88 x10^6/uL (3.50-5.40) Hemoglobin 11.7 g/dL (12.0-15.5) Hematocrit 39.3 % (36.0-47.0) Mean Corpuscular Volume 81 fL (79-100) Mean Corpuscular Hemoglobin 24 pg (25-35) Mean Corpuscular Hemoglobin Concent 30 g/dL (31-37) Red Cell Distribution Width 20.0 % (11.5-14.5) Platelet Count 347 x10^3/uL (140-400) Neutrophils (%) (Auto) 90 % (31-73) Lymphocytes (%) (Auto) 5 % (24-48) Monocytes (%) (Auto) 4 % (0-9) Eosinophils (%) (Auto) 0 % (0-3) Basophils (%) (Auto) 0 % (0-3) Neutrophils # (Auto) 18.8 x10^3/uL (1.8-7.7) Lymphocytes # (Auto) 1.1 x10^3/uL (1.0-4.8) Monocytes # (Auto) 0.9 x10^3/uL (0.0-1.1) Eosinophils # (Auto) 0.0 x10^3/uL (0.0-0.7) Basophils # (Auto) 0.0 x10^3/uL (0.0-0.2) Segmented Neutrophils % 78 % (35-66) Band Neutrophils % 11 % (0-9) Lymphocytes % 7 % (24-48) Monocytes % 4 % (0-10) Toxic Granulation Slight Platelet Estimate Adequate (ADEQUATE) Hypochromasia Slight Anisocytosis Slight Prothrombin Time 17.8 SEC (11.7-14.0) Prothromb Time International Ratio 1.5 (0.8-1.1) Activated Partial Thromboplast Time 32 SEC (24-38) Fibrinogen 467 mg/dL (200-440) D-Dimer (Mer) 3.40 ug/mlFEU (0.00-0.50) Sodium Level 165 mmol/L (136-145) Potassium Level 3.5 mmol/L (3.5-5.1) Chloride Level 126 mmol/L (98-107) Carbon Dioxide Level 24 mmol/L (21-32) Anion Gap 15 (6-14) Blood Urea Nitrogen 40 mg/dL (7-20) Creatinine 1.5 mg/dL (0.6-1.0) Estimated GFR (Cockcroft-Gault) 34.1 BUN/Creatinine Ratio 27 (6-20) Glucose Level 183 mg/dL (70-99) Lactic Acid Level 4.1 mmol/L (0.4-2.0) 6.9 mmol/L (0.4-2.0) Calcium Level 8.1 mg/dL (8.5-10.1) Ferritin 520 ng/mL (8-252) Total Bilirubin 1.0 mg/dL (0.2-1.0) Aspartate Amino Transf (AST/SGOT) 72 U/L (15-37) Alanine Aminotransferase (ALT/SGPT) 55 U/L (14-59) Alkaline Phosphatase 93 U/L (46-116) Lactate Dehydrogenase 300 U/L (81-234) Creatine Kinase 73 U/L (26-192) PO-Grl-Q-Type Natriuretic Peptide 1530 pg/mL (0-124) Total Protein 7.0 g/dL (6.4-8.2) Albumin 2.3 g/dL (3.4-5.0) Albumin/Globulin Ratio 0.5 (1.0-1.7) Lipase 133 U/L (73-393) Test 12/31/19 06:14 White Blood Count 18.4 x10^3/uL (4.0-11.0) Red Blood Count 4.10 x10^6/uL (3.50-5.40) Hemoglobin 10.0 g/dL (12.0-15.5) Hematocrit 33.5 % (36.0-47.0) Mean Corpuscular Volume 82 fL (79-100) Mean Corpuscular Hemoglobin 24 pg (25-35) Mean Corpuscular Hemoglobin Concent 30 g/dL (31-37) Red Cell Distribution Width 19.4 % (11.5-14.5) Platelet Count 214 x10^3/uL (140-400) Sodium Level 164 mmol/L (136-145) Potassium Level 2.8 mmol/L (3.5-5.1) Chloride Level 128 mmol/L (98-107) Carbon Dioxide Level 22 mmol/L (21-32) Anion Gap 14 (6-14) Blood Urea Nitrogen 35 mg/dL (7-20) Creatinine 1.2 mg/dL (0.6-1.0) Estimated GFR (Cockcroft-Gault) 44.2 BUN/Creatinine Ratio 29 (6-20) Glucose Level 240 mg/dL (70-99) Lactic Acid Level 4.0 mmol/L (0.4-2.0) Calcium Level 7.3 mg/dL (8.5-10.1) Total Bilirubin 0.5 mg/dL (0.2-1.0) Aspartate Amino Transf (AST/SGOT) 76 U/L (15-37) Alanine Aminotransferase (ALT/SGPT) 48 U/L (14-59) Alkaline Phosphatase 74 U/L (46-116) C-Reactive Protein, Quantitative 239.1 mg/L (0-3.3) Total Protein 5.2 g/dL (6.4-8.2) Albumin 1.8 g/dL (3.4-5.0) Albumin/Globulin Ratio 0.5 (1.0-1.7) Medications Active Scripts Medications Dose Route/Sig Max Daily Dose Days Date Category Metformin Hcl Er (Metformin Hcl) 500 Mg Tab.er.24h 500 Mg PO BIDWMEALS 12/30/19 Reported Zinc Sulfate 220 Mg Tablet 1 Tab PO DAILY 30 12/30/19 Reported Famotidine 20 Mg Tablet 20 Mg PO HS 12/30/19 Reported Dulcolax (Bisacodyl) 5 Mg Tablet.dr 2 Tab PO UD 1 12/30/19 Reported [Ascorbic Acid] 500 Mg PO BID 05/12/17 Reported Vitamin D (Cholecalciferol (Vitamin D3)) 2,000 Unit Capsule 2,000 Unit PO DAILY 01/05/16 Reported Tylenol (Acetaminophen) 325 Mg Tablet 650 Mg PO PRN Q6HRS PRN 01/05/16 Reported Polyethylene Glycol 3350 17 Gm Powd.pack 17 Gm PO DAILY 01/05/16 Reported Milk Of Magnesia (Magnesium Hydroxide) 400 Mg/5 Ml Oral.susp 400 Mg PO PRN DAILY PRN 01/05/16 Reported Linzess (Linaclotide) 145 Mcg Capsule 145 Mcg PO DAILY 01/05/16 Reported Escitalopram Oxalate 10 Mg Tablet 10 Mg PO DAILY 01/05/16 Reported Lacto-Pectin Capsule (Lactobac. No.33/B.breve,Longum) 1 Each Capsule 1 Each PO BID 01/05/16 Reported Eye Vitamin-Minerals Tablet (Vit A/C/E AC/Znox/Cupric Oxide) 1 Each Tablet 1 Each PO BID 01/05/16 Reported D3-50 (Cholecalciferol (Vitamin D3)) 50,000 Unit Capsule 50,000 Unit PO QM 01/05/16 Reported Centrum Silver Tablet (Multivits-Min/Fa/Lycopene/Lut) 1 Each Tablet 1 Each PO DAILY 01/05/16 Reported Baclofen 20 Mg Tablet 20 Mg PO BID 01/05/16 Reported Amlodipine Besylate 10 Mg Tablet 10 Mg PO DAILY 01/05/16 Reported Impression . Full note to be dictated Discussed with RN, reviewed data chest x-ray and arterial blood gas Patient at high risk for thromboembolic disease will obtain bilateral venous Dopplers of the lower extremities and VQ scan Initiate Lovenox 1 mg/kg for presumptive PE OSMAN PALOMARES MD Dec 31, 2019 08:16
--- NOTE | 2019-12-31 08:29 | HP ---
ADMIT DATE: 12/30/2019 PATIENT'S ROOM: ICU 14. REQUESTING PHYSICIAN: Dr. Sommer. REASON FOR CONSULTATION: History of sepsis. HISTORY OF PRESENT ILLNESS: The patient is a 74-year-old female with a history of multiple sclerosis with quadriplegia as well as diabetes. She is a intermediate resident and per report had COVID approximately 20 days ago. She was brought to [facility] Emergency Room on 12/30/2019 secondary to her respiratory failure. On arrival, her sats were in the 70s, respiratory rate was in the 50s, and she was placed on a nonrebreather. She is a do not intubate patient. She had fevers as high as 100.5 axillary. White blood cell count on arrival was 20.9. She was given a dose of levofloxacin as well as cefepime. She was admitted to the Intensive Care Unit. A Davies was attempted to be placed, however, has been unsuccessful. Currently, the patient lying in bed. She is on facemask. She is alert, but essentially nonverbal. PAST MEDICAL HISTORY: Positive for advanced multiple sclerosis with quadriplegia, neurogenic bladder, coronary artery disease, history of CVA, hypertension, diabetes, depression, anxiety, anemia, gastroesophageal reflux disease, history of sacral decubitus ulcer, recurrent urinary tract infections, chronic pain syndrome. She has a history of methicillin-resistant Staphylococcus aureus positive. PAST SURGICAL HISTORY: Positive for suprapubic catheter placement as well as a diverting colostomy. REVIEW OF SYSTEMS: Unobtainable. ALLERGIES: LISTED PENICILLIN, HAPPENED WHEN SHE WAS A CHILD. SHE HAD PROFOUND WEAKNESS, BUT SHE HAS TOLERATED CEPHALOSPORINS. SULFA IS LISTED WELL CODEINE AND IODINE. SOCIAL HISTORY: She is a . She is a intermediate resident. FAMILY HISTORY: Noncontributory. CURRENT MEDICATIONS: Zyvox was instituted this morning as well as meropenem. She is on low dose Levophed that is tapering off. She did receive a dose of cefepime as well as a dose of Levaquin. She is on Lovenox. PHYSICAL EXAMINATION: VITAL SIGNS: Current temperature 99.9, pulse 107, respirations 32, blood pressure 108/60, satting 99% on nonrebreather. CONSTITUTIONAL: She is alert, but not responsive. She has normal conjunctivae. Oral cavity, pharynx was dry. NECK: Without JVD. HEART: S1, S2. LUNGS: Some mild crackles, right greater than left. ABDOMEN: Soft, no guarding or rebound. SKIN: Without generalized signs of rash. EXTREMITIES: No clubbing, cyanosis. Her legs are contracted. IV sites, she has a right groin triple lumen catheter. NEUROLOGIC: She is nonresponsive. LABORATORY DATA: White count 18.4 down from 20.9 on arrival, hemoglobin 10, platelets of 214. She had 78 segs, 11 bands on presentation. Sodium this morning of 164, creatinine of 1.2, glucose of 240. AST 76, ALT 40, alkaline phosphatase 74. CRP was 239.1. Lactic acid was 4, down from 6.9. Lower extremity Dopplers were negative for DVT. Chest x-ray without acute infiltrates. IMPRESSION: 1. Sepsis, currently on low dose Levophed, questionably urine source, but unable to collect. 2. Acute hypoxic respiratory failure. Chest x-ray was clear. 3. Antibiotic allergies, but has tolerated cephalosporins. 4. Acute kidney injury. 5. Hypernatremia. 6. Encephalopathy. 7. Recent COVID. 8. History of methicillin-resistant Staphylococcus aureus positive. RECOMMENDATIONS: Agree with meropenem as well as Zyvox. We will dose daptomycin to cover bloodstream. Follow up labs, cultures, COVID. Davies to be attempted again. We will need to monitor for retention if not able to place. This was discussed with nursing. I spent 35 minutes of critical care time. Thank you for allowing me to participate in the patient's care. If you have further questions, please do not hesitate to contact me. ISELA RODRIGUES MD DR: STALIN/milly JOB#: [id number] / [id number] IVET
[2019-12-31] MEDS ORDERED: ACETAMINOPHEN 650 MG SUPP.RECT. PR PRN (09:15)
[2019-12-31] MEDS: DAPTOmycin (GENERIC) IVPB 320 MG in IV NORMAL SALINE 50ML 50 ML IV SCH (09:23)
[2019-12-31] MEDS ORDERED: HYDROCORTISONE SOD SUCC/PF 250 MG/2 ML VIAL. IV ONE (11:00)
--- NOTE | 2019-12-31 11:09 | CONS ---
DATE OF CONSULTATION: 12/31/2019 ATTENDING PHYSICIAN: Brain Sommer MD REASON FOR CONSULTATION: The patient is seen in pulmonary consultation at the request of Dr. Sommer for acute hypoxemic respiratory failure and sepsis. HISTORY OF PRESENT ILLNESS: The patient is a 74-year-old female with comorbidities. She resides at a detention. She has a history of multiple sclerosis with quadriplegia as well as diabetes. The patient apparently had a COVID test that was positive at the detention. She presented to the Emergency Room secondary to hypoxemia. Upon arrival, she had a saturation of 70. She had a respiratory rate that was markedly elevated. She was placed on nonrebreather. The patient does have an advanced directive, she is a do not resuscitate, do not intubate. Yesterday, I was called with her clinical status. She had a fever of 100.5. She was severely hypoxic. We placed on BiPAP. I reviewed her labs. Her arterial blood gas revealed a pH of 7.41, PaCO2 of 37, pO2 of 62. White count was elevated. She had been given multiple antibiotics in the Emergency Room. She had electrolyte derangement with sodium which was markedly elevated. Potassium was low. BUN and creatinine were elevated. No additional information was obtained. PAST MEDICAL HISTORY: Remarkable for: 1. Advanced multiple sclerosis with quadriplegia, neurogenic bladder. 2. Coronary artery disease. 3. History of CVA. 4. Hypertension. 5. Depression. 6. Anxiety. 7. Diabetes. 8. Gastroesophageal reflux. 9. Sacral decubiti ulcers. 10. Recurrent UTI. 11. Chronic pain. 12. History of methicillin-resistant Staph aureus infection. PAST SURGICAL HISTORY: Suprapubic catheter placement. REVIEW OF SYSTEMS: Unobtainable secondary to the patient's condition. ALLERGIES: LISTED TO PENICILLIN, SULFA, CODEINE, IODINE. FAMILY HISTORY: Noncontributory in this case. CURRENT MEDICATIONS: List was reviewed. The patient has been seen by Infectious Disease service. She is on broad coverage antibiotics including meropenem and Zyvox along with daptomycin. PHYSICAL EXAMINATION: GENERAL: The patient was in the Intensive Care Unit. She has had a T-max of 101.6. She is hypotensive, on multiple pressors. She is currently on BiPAP, nonresponsive. HEENT: Eyes, the sclerae were nonicteric. NECK: Jugular venous distention could not be assessed secondary to body habitus. CHEST: Full expansion. LUNGS: Anteriorly scattered rhonchi. CARDIOVASCULAR: Distant heart sounds. S1, S2. No S3. ABDOMEN: Soft. EXTREMITIES: Marked contractures and decubiti ulcers. LABORATORY DATA: As indicated above lactic acid was initially elevated to 6.9,, this morning was 3.4. Sodium was 1.64. BUN is 35, creatinine was 1.2. Blood gas yesterday as indicated above. INR was 1.5. Chest x-ray revealed no acute infiltrates. Venous Doppler ordered yesterday. No right lower extremity DVT. The left-sided venous Dopplers were difficult to evaluate, but no significant venous thrombosis was identified. IMPRESSION: 1. Acute hypoxemic respiratory failure. 2. Septic shock. 3. Marked electrolyte derangement with hypernatremia and hypokalemia. 4. Acute on chronic renal disease. 5. Multiple comorbidities including advanced stage multiple sclerosis. 6. Metabolic and toxic encephalopathy. 7. Recent [id number] positivity. 8. History of methicillin-resistant Staph aureus. PLAN: 1. Recommend to continue support with IV fluids and vasopressors. 2. Empiric antibiotics. 3. We will add steroids for possibility of adrenal insufficiency. 4. DVT prophylaxis, full dose for now until we obtain a V/Q scan. 5. Venous Dopplers were ordered, they were reported negative for DVT. 6. The patient now has an advanced directive, do not resuscitate, do not intubate. 7. Overall poor prognosis. We will continue our efforts. It is certainly possible that the patient may not survive this admission. OSMAN PALOMARES MD DR: DAVID/milly JOB#: [id number] / [id number]
[2019-12-31] MEDS ORDERED: DEXTROSE 50% 25 GM / 50ML DISP.SYRIN. IV PRN (11:15)
--- NOTE | 2019-12-31 11:35 | PN ---
DATE: SUBJECTIVE: The patient is resting, slightly propped up in bed, clearly tachypneic, pale, encephalopathic. Continued to spike her temperature. PHYSICAL EXAMINATION: GENERAL: When I examined her, she was pale. No jaundice, cyanosis or thyromegaly. No jugular venous distention. No limb edema. VITAL SIGNS: Her heart rate was 106, blood pressure was 100/45, temperature was 101.6, respiratory rate 30 and oxygen saturation was 100% on nonrebreather mask. HEAD, EYES, EARS, NOSE AND THROAT: Normocephalic, atraumatic. NECK: Supple. HEART: Showed normal first and second heart sounds. No gallop or murmur. CHEST: Clear to auscultation. No crepitation or rhonchi. ABDOMEN: Distended, soft, nontender. NEUROLOGIC: She is encephalopathic. All her cranial nerves intact. She has marked muscle wasting and severe fixed flexion contraction of all 4 limbs. Her intake over the last 24 hours was incompletely recorded. LABORATORY DATA: Her lab work this morning showed her white cell count is down to 18,400, hemoglobin 10, hematocrit 33, MCV 82, and platelet count 214,000. Her serum sodium was 164, potassium 2.8, chloride 128, bicarbonate 22, anion gap of 14, BUN 35, creatinine 1.2, estimated GFR was 44, blood glucose 140, calcium was 7.3. Total bilirubin, AST, ALT, alkaline phosphatase were normal. Her C-reactive protein was 239. Total protein was 5.2, albumin was 1.8. Her lactic acid this morning was 3.4. ASSESSMENT: 1. Acute hypoxic respiratory failure. 2. Severe sepsis, the source of which is not clear. Her blood cultures are so far negative 3. Acute kidney injury. 4. Hypernatremia. 5. Metabolic encephalopathy. 6. Recent COVID. PLAN: To continue with IV fluid in the form of D5 with 40 mEq of potassium chloride. Continue with IV antibiotic as recommended by Infectious Disease specialist. We will continue obviously to monitor her electrolytes and await the result of the culture and sensitivity. TOMI KAYE MD DR: ALKA/milly JOB#: [id number] / [id number]
[2019-12-31] MEDS: PANTOPRAZOLE IV PUSH 40 MG VIAL. IVP SCH (12:04)
[2019-12-31] MEDS: INSULIN LISPRO 300 UNITS/3 ML VIAL. SQ SCH ×2 (12:06→16:53)
--- NOTE | 2019-12-31 12:28 | NUR ---
levophed gtt titrated up to 0.3mcg/kg/min at 1200 today. Levophed drip was running at 0.2mcg/kg/min (20.6cc).
--- NOTE | 2019-12-31 12:55 | HP ---
ADMIT DATE: 12/30/2019 HISTORY OF PRESENT ILLNESS: The patient is a 74-year-old female patient, a resident at [facility] and [facility], who was brought to the Emergency Room with a complaint of dyspnea and respiratory distress. She apparently has tested positive for COVID-19 about 19 days ago, but has reportedly gotten better and now has increased shortness of breath over the last 3 days. The patient arrived via EMS from the [facility]. Her oxygen saturation there was only in the 70s, respiratory rate was in the 50s. The patient was placed on nonrebreather mask. The EMS was unable to place an IV access. The patient was very contracted. The patient does have a do not intubate, but full code otherwise. The patient is very encephalopathic, does not give any useful information. Very contracted because of progressive multiple sclerosis. She was basically investigated extensively in the Emergency Room and has her white cell count was high at 20,900. Her blood gases showed a pH of 7.4, pCO2 of 37, pO2 of 62. Her D-dimer was slightly elevated at 3.4. Her chemistry showed that her sodium was extremely high at 165 and procalcitonin was 0.51. The patient was admitted with severe sepsis, COVID-19 pneumonia, acute hypoxic respiratory failure and acute kidney injury, severe hypernatremia, metabolic encephalopathy. PAST MEDICAL HISTORY: Significant for progressive longstanding multiple sclerosis and neurogenic bladder with functional paraplegia. She used to have a sacral decubitus ulcer, has had gastroesophageal reflux disease, recurrent UTIs and chronic pain syndrome. PAST SURGICAL HISTORY: Significant for suprapubic catheter placement and diverting colostomy. FAMILY HISTORY: Unremarkable, noncontributory. SOCIAL HISTORY: She is , has no children, currently residing at [facility]. She does not smoke, drink alcohol or use any recreational drugs. REVIEW OF SYSTEMS: As per history of present illness. ALLERGIES: SHE IS ALLERGIC TO PENICILLIN, SULFA, IODINE, AND CODEINE. MEDICATIONS: She is currently on following medications: She is on baclofen 20 mg twice a day, amlodipine 10 mg once a day, acetaminophen 325 mg every 6 hourly, escitalopram oxalate 10 mg once a day, zinc sulfate 220 mg once a day, bisacodyl 5 mg 2 tablets once a day, magnesium hydroxide, milk of magnesia 30 mL p.o. daily p.r.n. for constipation, polyethylene glycol 17 grams daily, famotidine 20 mg at bedtime, lactobacillus rhamnosus 1 twice a day, linaclotide 145 mcg once a day, metformin 500 mg twice a day, cholecalciferol, vitamin D3 at 50,000 units once a day. She is also on multivitamin 1 tablet once a day and eye vitamin 1 tablet once a day, ascorbic acid 500 mg twice a day. REVIEW OF SYSTEMS: Unobtainable. PHYSICAL EXAMINATION: GENERAL: On arrival to the Emergency Room, the patient was markedly tachypneic. She was pale, but no jaundice, cyanosis or thyromegaly. No jugular venous distention. No limb edema. VITAL SIGNS: Her heart rate was 137, blood pressure was 89/50, temperature was 100.7, respiratory rate was 15 and oxygen saturation was 55% on 15 liters of oxygen. HEAD, EYES, EARS, NOSE AND THROAT: Showed normocephalic, atraumatic. NECK: Supple. HEART: Showed normal first and second heart sounds. No gallop, rub or murmur. CHEST: Clear to auscultation. No crepitation or rhonchi. ABDOMEN: Distended, soft, nontender. NEUROLOGIC: She is encephalopathic, severe muscle wasting and fixed flexion contraction of all 4 limbs due to advanced progressive multiple sclerosis. LABORATORY DATA: Her lab work on admission showed a white cell count 20,900, hemoglobin 11.7, hematocrit 39, MCV 81 and platelet count 347,000. Her chemistry on admission showed a serum sodium 165, potassium 3.5, chloride 126, bicarbonate 24, anion gap of 15, BUN 40, creatinine 1.5, estimated GFR was 34 mL per minute. Her glucose was 183, calcium was 8.1. Ferritin was 520. Total bilirubin, AST, ALT, alkaline phosphatase were normal. Lactate dehydrogenase was 300, her lactic acid on admission was 4.1, risen to 6.9, came down to 4 this morning, her beta natriuretic peptide was 1530. Total protein was 7, albumin 2.3. Lipase was 133 and procalcitonin was 0.51. Her prothrombin time was 17.8, INR 1.5, aPTT was 32. Fibrinogen 467 and D-dimer was 3.4. ASSESSMENT AND PLAN: In summary, this is a 74-year-old female patient, a resident at [facility], who was admitted with acute hypoxic respiratory failure, recent COVID infection, severe sepsis, source of which is not clear for which she is on Levophed. She has acute kidney injury, hypernatremia, metabolic encephalopathy. Has had a history of MRSA before. Plan is to continue with IV antibiotic as per the Infectious Disease specialist. She was started on Levaquin and I believe cefepime. I switched her to meropenem and Zyvox and consulted the Infectious Disease to assist with antibiotic management. The patient has received a total of probably 2 liters of normal saline and I switched however and started on Levophed. She also was started on Lovenox for DVT prophylaxis. She was also started on Protonix for GI prophylaxis. TOMI KAYE MD DR: ALKA/milly JOB#: [id number] / [id number]
--- NOTE | 2019-12-31 12:58 | RAD ---
Indication: Reason: RF / Spl. Instructions: / History: Technique: Static images are obtained of both lungs following IV administration of 5.5 mCi of 99 M technetium MAA. Comparison: December 30, 2019 Findings: There is some scattered perfusion defects seen within the bilateral lungs. Cannot assess whether these are matched or not given lack of ventilation images. Impression: 1. Bilateral perfusion defects are identified. Overall intermediate probability of pulmonary embolus. Electronically signed by: Aaron Ruiz MD (12/31/2019 12:55 PM) [id number]
--- NOTE | 2019-12-31 14:43 | NUR ---
SS following for discharge planning. SS reviewed pt chart and discussed with pt RN. Pt is LTC resident from [facility], ; fax [phone]. Pt was COVID19 positive at [facility]. Pt on non-rebreather. DNR. Pt on IV Zyvox, IV Dapotmycin, IV Meropenem, and Levophed. SS will continue to follow for discharge planning.
[2019-12-31] MEDS: fentaNYL PF VIAL 100 MCG/2 ML VIAL IVP PRN (17:11)
[2019-12-31 17:45] LABS: CALCIUM 7.9 mg/dL (8.5-10.1); CREATININE 1.2 mg/dL (0.6-1.0); GFR 44.2
[2019-12-31 17:51] LABS: POTASSIUM 2.9 mmol/L (3.5-5.1)
[2019-12-31] MEDS: POTASSIUM CHLORIDE 20MEQ 100 ML IV SCH ×2 (18:13→20:22)
[2019-12-31] MEDS: HYDROCORTISONE SOD SUCC/PF 100 MG/2 ML VIAL. IVP SCH (21:39)
[2020-01-01] VITALS (18 sets, daily range): BP systolic 82–163; BP diastolic 41–73
[2020-01-01] MEDS: IV NORMAL SALINE 1000ML BAG 1,000 ML IV SCH (00:40)
[2020-01-01] MEDS: INSULIN LISPRO 300 UNITS/3 ML VIAL. SQ SCH ×5 (05:56→23:59)
[2020-01-01 06:00] LABS: BASO % 0 % (0-3); EOS % 0 % (0-3); HEMATOCRIT 28.1 % (36.0-47.0); HEMOGLOBIN 8.7 g/dL (12.0-15.5); LYMPH # 1.3 x10^3/uL (1.0-4.8); LYMPH % 8 % (24-48); MEAN CORPUSCULAR HEMOGLOBIN 25 pg (25-35); MEAN CORPUSCULAR HGB CONC 31 g/dL (31-37); MEAN CORPUSCULAR VOLUME 79 fL (79-100); MONO # 0.4 x10^3/uL (0.0-1.1); MONO % 3 % (0-9); NEUT # 13.5 x10^3/uL (1.8-7.7); NEUT % 89 % (31-73); PLATELET COUNT 137 x10^3/uL (140-400); RED BLOOD COUNT 3.56 x10^6/uL (3.50-5.40); RED CELL DISTRIBUTION WIDTH 19.6 % (11.5-14.5); WHITE BLOOD COUNT 15.2 x10^3/uL (4.0-11.0)
[2020-01-01] MEDS: HYDROCORTISONE SOD SUCC/PF 100 MG/2 ML VIAL. IVP SCH ×3 (06:02→22:04)
[2020-01-01] MEDS: MEROPENEM 500 MG in IV NORMAL SALINE 50ML 50 ML IV SCH ×4 (06:02→23:31)
[2020-01-01 06:12] LABS: CALCIUM 7.8 mg/dL (8.5-10.1); CREATININE 1.1 mg/dL (0.6-1.0); GFR 48.8
--- NOTE | 2020-01-01 06:20 | NUR ---
Pt with noted O2 desat during the noc after turning pt and positioning on her left side. Pt had to be increased to a nonrebreather at 15L. Also suctioning performed and thick sputum noted. Pt repositioned again on her back and slowly recovering. O2 increased to 99% on nonrebreather. Will continue to monitor.
--- NOTE | 2020-01-01 06:24 | NUR ---
Levophed decreased during the noc and managed by previous Nurse.
--- NOTE | 2020-01-01 07:44 | PDOC ---
Infectious Disease Note Subjective Subjective Alert but too weak to voice ROS RADHA unable to obtain Vital Sign Vital Signs Vital Signs Date Time Temp Pulse Resp B/P (MAP) Pulse Ox O2 Delivery O2 Flow Rate FiO2 01/01/20 06:00 100 32 138/60 (86) 95 Nasal Cannula 7.0 01/01/20 04:00 98.1 98.1 Physical Exam PHYSICAL EXAM CONSTITUTIONAL: She is alert and more responsive. She has normal conjunctivae. Oral cavity, pharynx was dry. NECK: Without JVD. HEART: S1, S2. LUNGS: Some mild crackles, right greater than left. ABDOMEN: Soft, no guarding or rebound. SKIN: Without generalized signs of rash. EXTREMITIES: No clubbing, cyanosis. Her legs are contracted. IV sites, she has a right groin triple lumen catheter. NEUROLOGIC: She is alert Labs Lab Laboratory Tests Test 12/31/19 08:10 12/31/19 12:03 12/31/19 16:53 12/31/19 17:00 Lactic Acid Level 3.4 mmol/L (0.4-2.0) Glucose (Fingerstick) 214 mg/dL (70-99) 191 mg/dL (70-99) Sodium Level 160 mmol/L (136-145) Potassium Level 2.9 mmol/L (3.5-5.1) Chloride Level 123 mmol/L (98-107) Carbon Dioxide Level 22 mmol/L (21-32) Anion Gap 15 (6-14) Blood Urea Nitrogen 32 mg/dL (7-20) Creatinine 1.2 mg/dL (0.6-1.0) Estimated GFR (Cockcroft-Gault) 44.2 Glucose Level 214 mg/dL (70-99) Calcium Level 7.9 mg/dL (8.5-10.1) Test 01/01/20 00:07 01/01/20 05:14 01/01/20 05:15 Glucose (Fingerstick) 158 mg/dL (70-99) 148 mg/dL (70-99) White Blood Count 15.2 x10^3/uL (4.0-11.0) Red Blood Count 3.56 x10^6/uL (3.50-5.40) Hemoglobin 8.7 g/dL (12.0-15.5) Hematocrit 28.1 % (36.0-47.0) Mean Corpuscular Volume 79 fL (79-100) Mean Corpuscular Hemoglobin 25 pg (25-35) Mean Corpuscular Hemoglobin Concent 31 g/dL (31-37) Red Cell Distribution Width 19.6 % (11.5-14.5) Platelet Count 137 x10^3/uL (140-400) Neutrophils (%) (Auto) 89 % (31-73) Lymphocytes (%) (Auto) 8 % (24-48) Monocytes (%) (Auto) 3 % (0-9) Eosinophils (%) (Auto) 0 % (0-3) Basophils (%) (Auto) 0 % (0-3) Neutrophils # (Auto) 13.5 x10^3/uL (1.8-7.7) Lymphocytes # (Auto) 1.3 x10^3/uL (1.0-4.8) Monocytes # (Auto) 0.4 x10^3/uL (0.0-1.1) Eosinophils # (Auto) 0.0 x10^3/uL (0.0-0.7) Basophils # (Auto) 0.0 x10^3/uL (0.0-0.2) Sodium Level 156 mmol/L (136-145) Potassium Level 4.0 mmol/L (3.5-5.1) Chloride Level 122 mmol/L (98-107) Carbon Dioxide Level 21 mmol/L (21-32) Anion Gap 13 (6-14) Blood Urea Nitrogen 26 mg/dL (7-20) Creatinine 1.1 mg/dL (0.6-1.0) Estimated GFR (Cockcroft-Gault) 48.8 Glucose Level 161 mg/dL (70-99) Calcium Level 7.8 mg/dL (8.5-10.1) Micro Microbiology 12/30/19 Blood Culture - Preliminary, Resulted NO GROWTH AFTER 1 DAY Objective Assessment ? sepsis - now off Levophed ? Urine source but unable to collect Leukocytosis - better Acute Hypoxic resp failure - CXR clear - V/Q intermediate Abx allergies - has tolerated Cephalosporins YARI - better Hyperatremia Encephalopathy recent COVID H/o MRSA + Plan Plan of Care Cont Meropenem - increase dose 12/31 cont and Zyvox Dose Daptomycin F/u labs and cults/COVID Eletrolytes per primary Davies to attempted again but unsuccessful. Will need to monitor for retention if not able to place D/w nursing ISELA RODRIGUES MD Jan 01, 2020 07:43
--- NOTE | 2020-01-01 08:32 | PDOC ---
PULMONARY PROGRESS NOTES DATE: 01/01/20 TIME: 08:32 Subjective Patient more alert appears to be in pain, increasing respiratory distress Vitals Vital Signs Date Time Temp Pulse Resp B/P (MAP) Pulse Ox O2 Delivery O2 Flow Rate FiO2 01/01/20 06:00 100 32 138/60 (86) 95 Nasal Cannula 7.0 01/01/20 04:00 98.1 98.1 Comments Unable to obtain patient unresponsive HEENT: Other Lungs: Crackles Cardiovascular: S1, S2 Abdomen: Soft, Non-tender Extremities: No Edema Skin: Warm Labs Laboratory Tests Test 12/30/19 10:00 12/30/19 12:05 12/30/19 12:15 12/30/19 20:15 O2 Saturation 90 % (92-99) Arterial Blood pH 7.41 (7.35-7.45) Arterial Blood pCO2 at Patient Temp 37 mmHg (35-46) Arterial Blood pO2 at Patient Temp 62 mmHg (65-108) Arterial Blood HCO3 22 mmol/L (21-28) Arterial Blood Base Excess -2 mmol/L (-3-3) Oxyhemoglobin 89.1 % Methemoglobin 0.4 % (0.0-1.9) Carbon Monoxide, Quantitative 0.0 % (0.0-1.9) FiO2 100 Troponin I Quantitative 0.033 ng/mL (0.000-0.055) Procalcitonin 0.51 ng/mL (0.00-0.10) White Blood Count 20.9 x10^3/uL (4.0-11.0) Red Blood Count 4.88 x10^6/uL (3.50-5.40) Hemoglobin 11.7 g/dL (12.0-15.5) Hematocrit 39.3 % (36.0-47.0) Mean Corpuscular Volume 81 fL (79-100) Mean Corpuscular Hemoglobin 24 pg (25-35) Mean Corpuscular Hemoglobin Concent 30 g/dL (31-37) Red Cell Distribution Width 20.0 % (11.5-14.5) Platelet Count 347 x10^3/uL (140-400) Neutrophils (%) (Auto) 90 % (31-73) Lymphocytes (%) (Auto) 5 % (24-48) Monocytes (%) (Auto) 4 % (0-9) Eosinophils (%) (Auto) 0 % (0-3) Basophils (%) (Auto) 0 % (0-3) Neutrophils # (Auto) 18.8 x10^3/uL (1.8-7.7) Lymphocytes # (Auto) 1.1 x10^3/uL (1.0-4.8) Monocytes # (Auto) 0.9 x10^3/uL (0.0-1.1) Eosinophils # (Auto) 0.0 x10^3/uL (0.0-0.7) Basophils # (Auto) 0.0 x10^3/uL (0.0-0.2) Segmented Neutrophils % 78 % (35-66) Band Neutrophils % 11 % (0-9) Lymphocytes % 7 % (24-48) Monocytes % 4 % (0-10) Toxic Granulation Slight Platelet Estimate Adequate (ADEQUATE) Hypochromasia Slight Anisocytosis Slight Prothrombin Time 17.8 SEC (11.7-14.0) Prothromb Time International Ratio 1.5 (0.8-1.1) Activated Partial Thromboplast Time 32 SEC (24-38) Fibrinogen 467 mg/dL (200-440) D-Dimer (Mer) 3.40 ug/mlFEU (0.00-0.50) Sodium Level 165 mmol/L (136-145) Potassium Level 3.5 mmol/L (3.5-5.1) Chloride Level 126 mmol/L (98-107) Carbon Dioxide Level 24 mmol/L (21-32) Anion Gap 15 (6-14) Blood Urea Nitrogen 40 mg/dL (7-20) Creatinine 1.5 mg/dL (0.6-1.0) Estimated GFR (Cockcroft-Gault) 34.1 BUN/Creatinine Ratio 27 (6-20) Glucose Level 183 mg/dL (70-99) Lactic Acid Level 4.1 mmol/L (0.4-2.0) 6.9 mmol/L (0.4-2.0) Calcium Level 8.1 mg/dL (8.5-10.1) Ferritin 520 ng/mL (8-252) Total Bilirubin 1.0 mg/dL (0.2-1.0) Aspartate Amino Transf (AST/SGOT) 72 U/L (15-37) Alanine Aminotransferase (ALT/SGPT) 55 U/L (14-59) Alkaline Phosphatase 93 U/L (46-116) Lactate Dehydrogenase 300 U/L (81-234) Creatine Kinase 73 U/L (26-192) DW-Gdk-O-Type Natriuretic Peptide 1530 pg/mL (0-124) Total Protein 7.0 g/dL (6.4-8.2) Albumin 2.3 g/dL (3.4-5.0) Albumin/Globulin Ratio 0.5 (1.0-1.7) Lipase 133 U/L (73-393) Test 12/31/19 06:14 12/31/19 08:10 12/31/19 12:03 12/31/19 16:53 White Blood Count 18.4 x10^3/uL (4.0-11.0) Red Blood Count 4.10 x10^6/uL (3.50-5.40) Hemoglobin 10.0 g/dL (12.0-15.5) Hematocrit 33.5 % (36.0-47.0) Mean Corpuscular Volume 82 fL (79-100) Mean Corpuscular Hemoglobin 24 pg (25-35) Mean Corpuscular Hemoglobin Concent 30 g/dL (31-37) Red Cell Distribution Width 19.4 % (11.5-14.5) Platelet Count 214 x10^3/uL (140-400) Sodium Level 164 mmol/L (136-145) Potassium Level 2.8 mmol/L (3.5-5.1) Chloride Level 128 mmol/L (98-107) Carbon Dioxide Level 22 mmol/L (21-32) Anion Gap 14 (6-14) Blood Urea Nitrogen 35 mg/dL (7-20) Creatinine 1.2 mg/dL (0.6-1.0) Estimated GFR (Cockcroft-Gault) 44.2 BUN/Creatinine Ratio 29 (6-20) Glucose Level 240 mg/dL (70-99) Lactic Acid Level 4.0 mmol/L (0.4-2.0) 3.4 mmol/L (0.4-2.0) Calcium Level 7.3 mg/dL (8.5-10.1) Total Bilirubin 0.5 mg/dL (0.2-1.0) Aspartate Amino Transf (AST/SGOT) 76 U/L (15-37) Alanine Aminotransferase (ALT/SGPT) 48 U/L (14-59) Alkaline Phosphatase 74 U/L (46-116) C-Reactive Protein, Quantitative 239.1 mg/L (0-3.3) Total Protein 5.2 g/dL (6.4-8.2) Albumin 1.8 g/dL (3.4-5.0) Albumin/Globulin Ratio 0.5 (1.0-1.7) Glucose (Fingerstick) 214 mg/dL (70-99) 191 mg/dL (70-99) Test 12/31/19 17:00 01/01/20 00:07 01/01/20 05:14 01/01/20 05:15 Sodium Level 160 mmol/L (136-145) 156 mmol/L (136-145) Potassium Level 2.9 mmol/L (3.5-5.1) 4.0 mmol/L (3.5-5.1) Chloride Level 123 mmol/L (98-107) 122 mmol/L (98-107) Carbon Dioxide Level 22 mmol/L (21-32) 21 mmol/L (21-32) Anion Gap 15 (6-14) 13 (6-14) Blood Urea Nitrogen 32 mg/dL (7-20) 26 mg/dL (7-20) Creatinine 1.2 mg/dL (0.6-1.0) 1.1 mg/dL (0.6-1.0) Estimated GFR (Cockcroft-Gault) 44.2 48.8 Glucose Level 214 mg/dL (70-99) 161 mg/dL (70-99) Calcium Level 7.9 mg/dL (8.5-10.1) 7.8 mg/dL (8.5-10.1) Glucose (Fingerstick) 158 mg/dL (70-99) 148 mg/dL (70-99) White Blood Count 15.2 x10^3/uL (4.0-11.0) Red Blood Count 3.56 x10^6/uL (3.50-5.40) Hemoglobin 8.7 g/dL (12.0-15.5) Hematocrit 28.1 % (36.0-47.0) Mean Corpuscular Volume 79 fL (79-100) Mean Corpuscular Hemoglobin 25 pg (25-35) Mean Corpuscular Hemoglobin Concent 31 g/dL (31-37) Red Cell Distribution Width 19.6 % (11.5-14.5) Platelet Count 137 x10^3/uL (140-400) Neutrophils (%) (Auto) 89 % (31-73) Lymphocytes (%) (Auto) 8 % (24-48) Monocytes (%) (Auto) 3 % (0-9) Eosinophils (%) (Auto) 0 % (0-3) Basophils (%) (Auto) 0 % (0-3) Neutrophils # (Auto) 13.5 x10^3/uL (1.8-7.7) Lymphocytes # (Auto) 1.3 x10^3/uL (1.0-4.8) Monocytes # (Auto) 0.4 x10^3/uL (0.0-1.1) Eosinophils # (Auto) 0.0 x10^3/uL (0.0-0.7) Basophils # (Auto) 0.0 x10^3/uL (0.0-0.2) Laboratory Tests Test 12/31/19 12:03 12/31/19 16:53 12/31/19 17:00 01/01/20 00:07 Glucose (Fingerstick) 214 mg/dL (70-99) 191 mg/dL (70-99) 158 mg/dL (70-99) Sodium Level 160 mmol/L (136-145) Potassium Level 2.9 mmol/L (3.5-5.1) Chloride Level 123 mmol/L (98-107) Carbon Dioxide Level 22 mmol/L (21-32) Anion Gap 15 (6-14) Blood Urea Nitrogen 32 mg/dL (7-20) Creatinine 1.2 mg/dL (0.6-1.0) Estimated GFR (Cockcroft-Gault) 44.2 Glucose Level 214 mg/dL (70-99) Calcium Level 7.9 mg/dL (8.5-10.1) Test 01/01/20 05:14 01/01/20 05:15 Glucose (Fingerstick) 148 mg/dL (70-99) White Blood Count 15.2 x10^3/uL (4.0-11.0) Red Blood Count 3.56 x10^6/uL (3.50-5.40) Hemoglobin 8.7 g/dL (12.0-15.5) Hematocrit 28.1 % (36.0-47.0) Mean Corpuscular Volume 79 fL (79-100) Mean Corpuscular Hemoglobin 25 pg (25-35) Mean Corpuscular Hemoglobin Concent 31 g/dL (31-37) Red Cell Distribution Width 19.6 % (11.5-14.5) Platelet Count 137 x10^3/uL (140-400) Neutrophils (%) (Auto) 89 % (31-73) Lymphocytes (%) (Auto) 8 % (24-48) Monocytes (%) (Auto) 3 % (0-9) Eosinophils (%) (Auto) 0 % (0-3) Basophils (%) (Auto) 0 % (0-3) Neutrophils # (Auto) 13.5 x10^3/uL (1.8-7.7) Lymphocytes # (Auto) 1.3 x10^3/uL (1.0-4.8) Monocytes # (Auto) 0.4 x10^3/uL (0.0-1.1) Eosinophils # (Auto) 0.0 x10^3/uL (0.0-0.7) Basophils # (Auto) 0.0 x10^3/uL (0.0-0.2) Sodium Level 156 mmol/L (136-145) Potassium Level 4.0 mmol/L (3.5-5.1) Chloride Level 122 mmol/L (98-107) Carbon Dioxide Level 21 mmol/L (21-32) Anion Gap 13 (6-14) Blood Urea Nitrogen 26 mg/dL (7-20) Creatinine 1.1 mg/dL (0.6-1.0) Estimated GFR (Cockcroft-Gault) 48.8 Glucose Level 161 mg/dL (70-99) Calcium Level 7.8 mg/dL (8.5-10.1) Medications Active Scripts Medications Dose Route/Sig Max Daily Dose Days Date Category Metformin Hcl Er (Metformin Hcl) 500 Mg Tab.er.24h 500 Mg PO BIDWMEALS 12/30/19 Reported Zinc Sulfate 220 Mg Tablet 1 Tab PO DAILY 30 12/30/19 Reported Famotidine 20 Mg Tablet 20 Mg PO HS 12/30/19 Reported Dulcolax (Bisacodyl) 5 Mg Tablet.dr 2 Tab PO UD 1 12/30/19 Reported [Ascorbic Acid] 500 Mg PO BID 05/12/17 Reported Vitamin D (Cholecalciferol (Vitamin D3)) 2,000 Unit Capsule 2,000 Unit PO DAILY 01/05/16 Reported Tylenol (Acetaminophen) 325 Mg Tablet 650 Mg PO PRN Q6HRS PRN 01/05/16 Reported Polyethylene Glycol 3350 17 Gm Powd.pack 17 Gm PO DAILY 01/05/16 Reported Milk Of Magnesia (Magnesium Hydroxide) 400 Mg/5 Ml Oral.susp 400 Mg PO PRN DAILY PRN 01/05/16 Reported Linzess (Linaclotide) 145 Mcg Capsule 145 Mcg PO DAILY 01/05/16 Reported Escitalopram Oxalate 10 Mg Tablet 10 Mg PO DAILY 01/05/16 Reported Lacto-Pectin Capsule (Lactobac. No.33/B.breve,Longum) 1 Each Capsule 1 Each PO BID 01/05/16 Reported Eye Vitamin-Minerals Tablet (Vit A/C/E AC/Znox/Cupric Oxide) 1 Each Tablet 1 Each PO BID 01/05/16 Reported D3-50 (Cholecalciferol (Vitamin D3)) 50,000 Unit Capsule 50,000 Unit PO QM 01/05/16 Reported Centrum Silver Tablet (Multivits-Min/Fa/Lycopene/Lut) 1 Each Tablet 1 Each PO DAILY 01/05/16 Reported Baclofen 20 Mg Tablet 20 Mg PO BID 01/05/16 Reported Amlodipine Besylate 10 Mg Tablet 10 Mg PO DAILY 01/05/16 Reported Impression . IMPRESSION: 1. Acute hypoxemic respiratory failure. 2. Septic shock. 3. Marked electrolyte derangement with hypernatremia and hypokalemia. 4. Acute on chronic renal disease. 5. Multiple comorbidities including advanced stage multiple sclerosis. 6. Metabolic and toxic encephalopathy. 7. Recent MLGS-IXQGT-3 positivity. 8. History of methicillin-resistant Staph aureus. 9. Venous Dopplers of lower extremities no evidence of DVT Plan . Patient appears to be in discomfort, increasing respiratory distress Appreciate Dr. Christian's input Spoke with RN, brother who is the D POA agrees with comfort care I recommend morphine sulfate for air hunger and pain, called the POA, left voicemail Continue current empiric antibiotic DVT pro for OSMAN PALOMARES MD Jan 01, 2020 08:32
[2020-01-01] MEDS: PANTOPRAZOLE IV PUSH 40 MG VIAL. IVP SCH (09:24)
[2020-01-01] MEDS: POTASSIUM CHLORIDE 40 MEQ in IV DEXTROSE 5% 1,000 ML IV SCH ×3 (09:24→23:48)
[2020-01-01] MEDS: DAPTOmycin (GENERIC) IVPB 320 MG in IV NORMAL SALINE 50ML 50 ML IV SCH (09:25)
--- NOTE | 2020-01-01 11:08 | PN ---
DATE: 01/01/2020 SUBJECTIVE: The patient is sitting slightly propped up in bed, seems to be slightly better. She is not as tachypneic as she was yesterday. She is opening her eyes, although she does not really follow commands. PHYSICAL EXAMINATION: GENERAL: When I examined her, she was pale, no jaundice, cyanosis or thyromegaly. No jugular venous distention. No limb edema. VITAL SIGNS: Her heart rate was 104, blood pressure was 137/55, temperature was 98.1, respiratory rate 27, and oxygen saturation was 87%. She is actually on 10 liters of oxygen by nonrebreather mask. HEENT: Showed normocephalic, atraumatic. NECK: Supple. HEART: Showed normal first and second heart sounds. No gallop, rub or murmur. CHEST: Showed central trachea, equal bilateral chest expansion, air entry, vesicular sounds. No crepitation. I could not appreciate any crepitation or rhonchi anteriorly. ABDOMEN: Distended, soft, nontender. NEUROLOGIC: She is encephalopathic, has severe advanced progressive multiple sclerosis with marked flexion contraction of all 4 limbs. Her intake over the last 24 hours is 4266. Her output is incompletely recorded. LABORATORY DATA: Her white cell count is down to 15,200, hemoglobin 8.7, hematocrit 28, MCV 79 and platelet count of 137,000. Her chemistry showed a serum sodium 156, potassium 4, chloride 122, bicarbonate 21, anion gap of 13, BUN 26, creatinine 1.1, estimated GFR was 48 mL per minute. Her glucose 161 and calcium was 7.8. ASSESSMENT: 1. Acute hypoxic respiratory failure. 2. Sepsis, likely due to urinary tract infection. 3. Acute kidney injury is improving. 4. Hypernatremia, improving. 5. Encephalopathy. The patient continued to be encephalopathic. 6. She has recent history of COVID-19. PLAN: To continue with meropenem. Continue with Zyvox. Continue with D5W with potassium. We will continue with Lovenox 60 mg subcutaneous once a day. We will monitor her labs daily. TOMI KAYE MD DR: ALKA/milly JOB#: [id number] / [id number]
[2020-01-01] MEDS: fentaNYL PF VIAL 100 MCG/2 ML VIAL IVP PRN (11:24)
--- NOTE | 2020-01-01 12:51 | PDOC2 ---
CONSULT Date of Consult Date of Consult DATE: 01/01/20 TIME: 12:43 Reason for Consult Reason for Consult: YARI AND HIGH NA Referring Physician Referring Physician: VARGAS Identification/Chief Complaint Chief Complaint SOB History of Present Illness Reason for Visit: THIS IS A 74 YR OLD [facility] PT WITH SOB AND HYPOXEMIA. TESTED POS FOR COVID. CURRENTLY IN THE ICU ON SUPPLEMENTAL O2. RENAL CONSULT DUE TO YARI WITH CR OF 1.2 AND NA OF 160. PULMONARY TX ONGOING. PT IS A DNR. HX NOTABLE FOR COMORBIDITIES INCLUDING MS WITH QUADRIPLEGIA AND DM II. ALSO SOME DEMENTIA. NO REPORTED HX Past Medical History Past Medical History QUADRIPLEGIA Cardiovascular: HTN CENTRAL NERVOUS SYSTEM: Dementia, Other (MS) Renal/: No pertinent hx Endocrine: Diabetes Past Surgical History Past Surgical History: No pertinent history Family History Family History: No Significant, Other Social History ALCOHOL: none Drugs: None Lives: Correction Current Problem List Problem List Problems Medical Problems: (1) COVID-19 Status: Acute (2) Hypernatremia Status: Acute (3) Respiratory failure Status: Acute (4) Septic shock Status: Acute Current Medications Current Medications Current Medications Levofloxacin/ Dextrose 150 ml @ 100 mls/hr 1X ONCE IV Last administered on 12/30/19at 11:00; Start 12/30/19 at 09:45; Stop 12/30/19 at 11:14; Status DC Cefepime HCl (Maxipime) 2 gm 1X ONCE IVP Last administered on 12/30/19at 10:55; Start 12/30/19 at 09:45; Stop 12/30/19 at 09:46; Status DC Sodium Chloride 1,000 ml @ 1,650 mls/hr Q37M IV Last administered on 12/30/19at 09:39; Start 12/30/19 at 09:39; Stop 12/30/19 at 10:39; Status DC Norepinephrine Bitartrate 8 mg/ Dextrose 258 ml @ 10.643 mls/ hr 1X ONCE IV Last administered on 12/30/19at 12:33; Start 12/30/19 at 12:15; Stop 12/30/19 at 17:12; Status DC Dopamine HCl/ Dextrose 250 ml @ 10.313 mls/ hr 1X ONCE IV Last administered on 12/30/19at 13:12; Start 12/30/19 at 13:00; Stop 12/31/19 at 13:14; Status DC Ondansetron HCl (Zofran) 4 mg PRN Q8HRS PRN IV NAUSEA/VOMITING; Start 12/30/19 at 13:00; Stop 12/31/19 at 12:59; Status DC Enoxaparin Sodium (Lovenox Per Pharmacy Treatment Dosing) 1 each PRN DAILY PRN MC SEE COMMENTS; Start 12/30/19 at 17:00 Enoxaparin Sodium (Lovenox 60mg Syringe) 60 mg Q24H SQ Last administered on 12/31/19at 16:53; Start 12/30/19 at 17:00 Norepinephrine Bitartrate 8 mg/ Dextrose 258 ml @ 10.643 mls/ hr CONT PRN IV PER PROTOCOL Last administered on 12/31/19at 05:53; Start 12/30/19 at 17:15 Sodium Chloride 1,000 ml @ 150 mls/hr Q6H40M IV Last administered on 12/31/19at 04:40; Start 12/30/19 at 22:00; Stop 01/01/20 at 03:25; Status DC Meropenem 500 mg/ Sodium Chloride 50 ml @ 100 mls/hr Q8HRS IV Last administered on 01/01/20at 06:02; Start 12/31/19 at 06:00; Stop 01/01/20 at 07:45; Status DC Linezolid/Dextrose 300 ml @ 300 mls/hr Q12HR IV Last administered on 01/01/20at 10:07; Start 12/31/19 at 09:00 Potassium Chloride 40 meq/ Dextrose 1,020 ml @ 100 mls/hr [id number] IV Last administered on 01/01/20at 09:24; Start 12/31/19 at 07:00 Daptomycin 320 mg/ Sodium Chloride 50 ml @ 100 mls/hr Q24H IV Last administered on 01/01/20at 09:25; Start 12/31/19 at 08:00 Acetaminophen (Tylenol Supp) 650 mg PRN Q6HRS PRN HI MILD PAIN / TEMP > 100.3'F Last administered on 12/31/19at 09:37; Start 12/31/19 at 09:15 Hydrocortisone Sodium Succinate (Solu-CORTEF) 100 mg Q8HRS IVP Last administered on 01/01/20at 06:02; Start 12/31/19 at 22:00 Hydrocortisone Sodium Succinate (Solu-CORTEF) 250 mg 1X ONCE IV Last administered on 12/31/19at 12:07; Start 12/31/19 at 11:00; Stop 12/31/19 at 11:03; Status DC Insulin Human Lispro (HumaLOG) 0-7 UNITS Q6H SQ Last administered on 12/31/19at 12:06; Start 12/31/19 at 12:00 Dextrose (Dextrose 50%-Water Syringe) 12.5 gm PRN Q15MIN PRN IV SEE COMMENTS; Start 12/31/19 at 11:15 Pantoprazole Sodium (PROTONIX VIAL for IV PUSH) 40 mg DAILYAC IVP Last administered on 01/01/20at 09:24; Start 12/31/19 at 11:30 Fentanyl Citrate (Fentanyl 2ml Vial) 25 mcg PRN Q3HRS PRN IVP PAIN Last administered on 01/01/20at 11:24; Start 12/31/19 at 17:15 Potassium Chloride/Water 100 ml @ 100 mls/hr Q1H IV Last administered on 12/31/19at 20:22; Start 12/31/19 at 18:30; Stop 12/31/19 at 20:29; Status DC Meropenem 500 mg/ Sodium Chloride 50 ml @ 100 mls/hr Q6HRS IV ; Start 01/01/20 at 12:00 Active Scripts Active Reported Metformin Hcl Er (Metformin Hcl) 500 Mg Tab.er.24h 500 Mg PO BIDWMEALS Zinc Sulfate 220 Mg Tablet 1 Tab PO DAILY 30 Days Famotidine 20 Mg Tablet 20 Mg PO HS Dulcolax (Bisacodyl) 5 Mg Tablet.dr 2 Tab PO UD 1 Days [Ascorbic Acid] 500 Mg PO BID Vitamin D (Cholecalciferol (Vitamin D3)) 2,000 Unit Capsule 2,000 Unit PO DAILY Tylenol (Acetaminophen) 325 Mg Tablet 650 Mg PO PRN Q6HRS PRN Polyethylene Glycol 3350 17 Gm Powd.pack 17 Gm PO DAILY Milk Of Magnesia (Magnesium Hydroxide) 400 Mg/5 Ml Oral.susp 400 Mg PO PRN DAILY PRN Linzess (Linaclotide) 145 Mcg Capsule 145 Mcg PO DAILY Escitalopram Oxalate 10 Mg Tablet 10 Mg PO DAILY Lacto-Pectin Capsule (Lactobac. No.33/B.breve,Longum) 1 Each Capsule 1 Each PO BID Eye Vitamin-Minerals Tablet (Vit A/C/E AC/Znox/Cupric Oxide) 1 Each Tablet 1 Each PO BID D3-50 (Cholecalciferol (Vitamin D3)) 50,000 Unit Capsule 50,000 Unit PO QM Centrum Silver Tablet (Multivits-Min/Fa/Lycopene/Lut) 1 Each Tablet 1 Each PO DAILY Baclofen 20 Mg Tablet 20 Mg PO BID Amlodipine Besylate 10 Mg Tablet 10 Mg PO DAILY Allergies Allergies: Coded Allergies: Penicillins (Verified Allergy, Intermediate, 01/31/17) tolerates Cefepime Sulfa (Sulfonamide Antibiotics) (Verified Allergy, Intermediate, 01/06/16) codeine (Verified Allergy, Intermediate, 05/12/17) noted on [place] paperwork iodine (Verified Allergy, Intermediate, 01/06/16) I S O L A T I O N *CONTACT* (Verified Allergy, Unknown, 05/13/17) mrsa ROS Review of System UNABLE TO OBTAIN Physical Exam General: Cooperative, moderate distress HEENT: Atraumatic, PERRLA Lungs: Other (COARSE BILATERALLY) Heart: Regular rate Abdomen: Normal bowel sounds, Soft, No tenderness Extremities: No clubbing Skin: No breakdown Neuro: Other (CONFUSED) Psych/Mental Status: Other (ANXIOUS) MUSCULOSKELETAL: Other (CONTRACTED, ATROPHIED) Vitals VITALS Vital Signs Date Time Temp Pulse Resp B/P (MAP) Pulse Ox O2 Delivery O2 Flow Rate FiO2 01/01/20 12:00 Non-Rebreather 15.0 01/01/20 11:24 36 93 01/01/20 10:00 106 130/62 (84) 01/01/20 08:00 99.0 99.0 Labs Labs Laboratory Tests Test 12/30/19 20:15 12/31/19 06:14 12/31/19 08:10 12/31/19 12:03 Lactic Acid Level 6.9 mmol/L (0.4-2.0) 4.0 mmol/L (0.4-2.0) 3.4 mmol/L (0.4-2.0) White Blood Count 18.4 x10^3/uL (4.0-11.0) Red Blood Count 4.10 x10^6/uL (3.50-5.40) Hemoglobin 10.0 g/dL (12.0-15.5) Hematocrit 33.5 % (36.0-47.0) Mean Corpuscular Volume 82 fL (79-100) Mean Corpuscular Hemoglobin 24 pg (25-35) Mean Corpuscular Hemoglobin Concent 30 g/dL (31-37) Red Cell Distribution Width 19.4 % (11.5-14.5) Platelet Count 214 x10^3/uL (140-400) Sodium Level 164 mmol/L (136-145) Potassium Level 2.8 mmol/L (3.5-5.1) Chloride Level 128 mmol/L (98-107) Carbon Dioxide Level 22 mmol/L (21-32) Anion Gap 14 (6-14) Blood Urea Nitrogen 35 mg/dL (7-20) Creatinine 1.2 mg/dL (0.6-1.0) Estimated GFR (Cockcroft-Gault) 44.2 BUN/Creatinine Ratio 29 (6-20) Glucose Level 240 mg/dL (70-99) Calcium Level 7.3 mg/dL (8.5-10.1) Total Bilirubin 0.5 mg/dL (0.2-1.0) Aspartate Amino Transf (AST/SGOT) 76 U/L (15-37) Alanine Aminotransferase (ALT/SGPT) 48 U/L (14-59) Alkaline Phosphatase 74 U/L (46-116) C-Reactive Protein, Quantitative 239.1 mg/L (0-3.3) Total Protein 5.2 g/dL (6.4-8.2) Albumin 1.8 g/dL (3.4-5.0) Albumin/Globulin Ratio 0.5 (1.0-1.7) Glucose (Fingerstick) 214 mg/dL (70-99) Test 12/31/19 16:53 12/31/19 17:00 01/01/20 00:07 01/01/20 05:14 Glucose (Fingerstick) 191 mg/dL (70-99) 158 mg/dL (70-99) 148 mg/dL (70-99) Sodium Level 160 mmol/L (136-145) Potassium Level 2.9 mmol/L (3.5-5.1) Chloride Level 123 mmol/L (98-107) Carbon Dioxide Level 22 mmol/L (21-32) Anion Gap 15 (6-14) Blood Urea Nitrogen 32 mg/dL (7-20) Creatinine 1.2 mg/dL (0.6-1.0) Estimated GFR (Cockcroft-Gault) 44.2 Glucose Level 214 mg/dL (70-99) Calcium Level 7.9 mg/dL (8.5-10.1) Test 01/01/20 05:15 White Blood Count 15.2 x10^3/uL (4.0-11.0) Red Blood Count 3.56 x10^6/uL (3.50-5.40) Hemoglobin 8.7 g/dL (12.0-15.5) Hematocrit 28.1 % (36.0-47.0) Mean Corpuscular Volume 79 fL (79-100) Mean Corpuscular Hemoglobin 25 pg (25-35) Mean Corpuscular Hemoglobin Concent 31 g/dL (31-37) Red Cell Distribution Width 19.6 % (11.5-14.5) Platelet Count 137 x10^3/uL (140-400) Neutrophils (%) (Auto) 89 % (31-73) Lymphocytes (%) (Auto) 8 % (24-48) Monocytes (%) (Auto) 3 % (0-9) Eosinophils (%) (Auto) 0 % (0-3) Basophils (%) (Auto) 0 % (0-3) Neutrophils # (Auto) 13.5 x10^3/uL (1.8-7.7) Lymphocytes # (Auto) 1.3 x10^3/uL (1.0-4.8) Monocytes # (Auto) 0.4 x10^3/uL (0.0-1.1) Eosinophils # (Auto) 0.0 x10^3/uL (0.0-0.7) Basophils # (Auto) 0.0 x10^3/uL (0.0-0.2) Sodium Level 156 mmol/L (136-145) Potassium Level 4.0 mmol/L (3.5-5.1) Chloride Level 122 mmol/L (98-107) Carbon Dioxide Level 21 mmol/L (21-32) Anion Gap 13 (6-14) Blood Urea Nitrogen 26 mg/dL (7-20) Creatinine 1.1 mg/dL (0.6-1.0) Estimated GFR (Cockcroft-Gault) 48.8 Glucose Level 161 mg/dL (70-99) Calcium Level 7.8 mg/dL (8.5-10.1) Laboratory Tests Test 12/31/19 16:53 12/31/19 17:00 01/01/20 00:07 01/01/20 05:14 Glucose (Fingerstick) 191 mg/dL (70-99) 158 mg/dL (70-99) 148 mg/dL (70-99) Sodium Level 160 mmol/L (136-145) Potassium Level 2.9 mmol/L (3.5-5.1) Chloride Level 123 mmol/L (98-107) Carbon Dioxide Level 22 mmol/L (21-32) Anion Gap 15 (6-14) Blood Urea Nitrogen 32 mg/dL (7-20) Creatinine 1.2 mg/dL (0.6-1.0) Estimated GFR (Cockcroft-Gault) 44.2 Glucose Level 214 mg/dL (70-99) Calcium Level 7.9 mg/dL (8.5-10.1) Test 01/01/20 05:15 White Blood Count 15.2 x10^3/uL (4.0-11.0) Red Blood Count 3.56 x10^6/uL (3.50-5.40) Hemoglobin 8.7 g/dL (12.0-15.5) Hematocrit 28.1 % (36.0-47.0) Mean Corpuscular Volume 79 fL (79-100) Mean Corpuscular Hemoglobin 25 pg (25-35) Mean Corpuscular Hemoglobin Concent 31 g/dL (31-37) Red Cell Distribution Width 19.6 % (11.5-14.5) Platelet Count 137 x10^3/uL (140-400) Neutrophils (%) (Auto) 89 % (31-73) Lymphocytes (%) (Auto) 8 % (24-48) Monocytes (%) (Auto) 3 % (0-9) Eosinophils (%) (Auto) 0 % (0-3) Basophils (%) (Auto) 0 % (0-3) Neutrophils # (Auto) 13.5 x10^3/uL (1.8-7.7) Lymphocytes # (Auto) 1.3 x10^3/uL (1.0-4.8) Monocytes # (Auto) 0.4 x10^3/uL (0.0-1.1) Eosinophils # (Auto) 0.0 x10^3/uL (0.0-0.7) Basophils # (Auto) 0.0 x10^3/uL (0.0-0.2) Sodium Level 156 mmol/L (136-145) Potassium Level 4.0 mmol/L (3.5-5.1) Chloride Level 122 mmol/L (98-107) Carbon Dioxide Level 21 mmol/L (21-32) Anion Gap 13 (6-14) Blood Urea Nitrogen 26 mg/dL (7-20) Creatinine 1.1 mg/dL (0.6-1.0) Estimated GFR (Cockcroft-Gault) 48.8 Glucose Level 161 mg/dL (70-99) Calcium Level 7.8 mg/dL (8.5-10.1) Assessment/Plan Assessment/Plan IMP ACUTE HYPOXIC RESP FAILURE PROB COVID 19 PNEUMONIA YARI DUE TO VOLUME DEPLETION HYPERNATREMIA HYPOKALEMIA PLAN REPLETE K ANTIBIOTICS PULM SUPPORT FREE WATER IN THE FORM OF D5W MAY NEED TO GIVE K SEPARATELY-ADDING ELECTROLYTES TO D5W DECREASES AVAILABLE FREE WATER LABS IN AM WILL FOLLOW PT IS A DNR NOT A DIALYSIS CANDIDATE IF RENAL FXN DETERIORATES AGATA PANDYA MD Jan 01, 2020 12:50
[2020-01-01] MEDS ORDERED: IV NORMAL SALINE 1000ML BAG 1,000 ML IV SCH (13:14)
[2020-01-01] MEDS ORDERED: NALOXONE 0.4 MG/ML VIAL. IV PRN (13:15)
--- NOTE | 2020-01-01 14:22 | NUR ---
SS following up with discharge planning. SS reviewed pt chart and discussed with pt RN. Pt on non rebreather mask. COVID19 positive at [facility]. Pt on IV Meropenem, IV Zyvox, and IV Daptomycin. Possible comfort care soon. DNR. SS will continue to follow for discharge planning.
[2020-01-01] MEDS: MORPHINE SULFATE 30 ML IV PRN (16:34)
--- NOTE | 2020-01-02 00:03 | NUR ---
Nursing Note: Called Robbi (brother and DPOA) updated on pts status. Oxygen saturation has dropped into the low 80% on 100% NRB. Continues on morphine gtt for comfort. No labored or breath struggles noted.
[2020-01-02 02:34] VITALS: BP 81/55
[2020-01-02] MEDS: HYDROCORTISONE SOD SUCC/PF 100 MG/2 ML VIAL. IVP SCH (05:27)
[2020-01-02] MEDS: MEROPENEM 500 MG in IV NORMAL SALINE 50ML 50 ML IV SCH (05:27)
[2020-01-02] MEDS: INSULIN LISPRO 300 UNITS/3 ML VIAL. SQ SCH (06:00)
--- NOTE | 2020-01-02 06:49 | PDOC ---
Infectious Disease Note Subjective Subjective Alert but nonresponsive ROS ROS unable to obtaini Vital Sign Vital Signs Vital Signs Date Time Temp Pulse Resp B/P (MAP) Pulse Ox O2 Delivery O2 Flow Rate FiO2 01/02/20 02:34 112 15 81/55 (64) 88 NonRebreather Mask 15.0 01/01/20 23:00 97.9 97.9 Physical Exam PHYSICAL EXAM CONSTITUTIONAL: She is alert and NAD HEENT: She has normal conjunctivae. Oral cavity, pharynx was dry. NECK: Without JVD. HEART: S1, S2. LUNGS: Some mild crackles, right greater than left. ABDOMEN: Soft, no guarding or rebound. SKIN: Without generalized signs of rash. EXTREMITIES: No clubbing, cyanosis. Her legs are contracted. IV sites, she has a right groin triple lumen catheter. NEUROLOGIC: She is alert Labs Lab Laboratory Tests Test 01/01/20 11:29 01/01/20 18:34 01/01/20 23:46 Glucose (Fingerstick) 173 mg/dL (70-99) 137 mg/dL (70-99) 203 mg/dL (70-99) Micro Microbiology 12/30/19 Blood Culture - Preliminary, Resulted NO GROWTH AFTER 1 DAY Objective Assessment ? sepsis - now off Levophed ? Urine source but unable to collect Bactermia 04/24 - likel contamination Leukocytosis - better Acute Hypoxic resp failure - CXR clear - V/Q intermediate Abx allergies - has tolerated Cephalosporins YARI - better Hyperatremia Encephalopathy recent COVID H/o MRSA + Plan Plan of Care Likely going comfort care per nursing - await diecision Cont Meropenem - increase dose 12/31 cont and Zyvox Dose Daptomycin F/u labs and cults/COVID Eletrolytes per primary Davies to attempted again but unsuccessful. Will need to monitor for retention if not able to place D/w nursing ISELA RODRIGUES MD Jan 02, 2020 06:49
--- NOTE | 2020-01-02 07:05 | PDOC ---
PULMONARY PROGRESS NOTES DATE: 01/02/20 TIME: 07:03 Subjective on 100% nrb not responsive Vitals Vital Signs Date Time Temp Pulse Resp B/P (MAP) Pulse Ox O2 Delivery O2 Flow Rate FiO2 01/02/20 02:34 112 15 81/55 (64) 88 NonRebreather Mask 15.0 01/01/20 23:00 97.9 97.9 Comments Unable to obtain patient unresponsive HEENT: Other Cardiovascular: S1, S2 Extremities: No Edema Skin: Other (no rash) Labs Laboratory Tests Test 12/31/19 08:10 12/31/19 12:03 12/31/19 16:53 12/31/19 17:00 Lactic Acid Level 3.4 mmol/L (0.4-2.0) Glucose (Fingerstick) 214 mg/dL (70-99) 191 mg/dL (70-99) Sodium Level 160 mmol/L (136-145) Potassium Level 2.9 mmol/L (3.5-5.1) Chloride Level 123 mmol/L (98-107) Carbon Dioxide Level 22 mmol/L (21-32) Anion Gap 15 (6-14) Blood Urea Nitrogen 32 mg/dL (7-20) Creatinine 1.2 mg/dL (0.6-1.0) Estimated GFR (Cockcroft-Gault) 44.2 Glucose Level 214 mg/dL (70-99) Calcium Level 7.9 mg/dL (8.5-10.1) Test 01/01/20 00:07 01/01/20 05:14 01/01/20 05:15 01/01/20 11:29 Glucose (Fingerstick) 158 mg/dL (70-99) 148 mg/dL (70-99) 173 mg/dL (70-99) White Blood Count 15.2 x10^3/uL (4.0-11.0) Red Blood Count 3.56 x10^6/uL (3.50-5.40) Hemoglobin 8.7 g/dL (12.0-15.5) Hematocrit 28.1 % (36.0-47.0) Mean Corpuscular Volume 79 fL (79-100) Mean Corpuscular Hemoglobin 25 pg (25-35) Mean Corpuscular Hemoglobin Concent 31 g/dL (31-37) Red Cell Distribution Width 19.6 % (11.5-14.5) Platelet Count 137 x10^3/uL (140-400) Neutrophils (%) (Auto) 89 % (31-73) Lymphocytes (%) (Auto) 8 % (24-48) Monocytes (%) (Auto) 3 % (0-9) Eosinophils (%) (Auto) 0 % (0-3) Basophils (%) (Auto) 0 % (0-3) Neutrophils # (Auto) 13.5 x10^3/uL (1.8-7.7) Lymphocytes # (Auto) 1.3 x10^3/uL (1.0-4.8) Monocytes # (Auto) 0.4 x10^3/uL (0.0-1.1) Eosinophils # (Auto) 0.0 x10^3/uL (0.0-0.7) Basophils # (Auto) 0.0 x10^3/uL (0.0-0.2) Sodium Level 156 mmol/L (136-145) Potassium Level 4.0 mmol/L (3.5-5.1) Chloride Level 122 mmol/L (98-107) Carbon Dioxide Level 21 mmol/L (21-32) Anion Gap 13 (6-14) Blood Urea Nitrogen 26 mg/dL (7-20) Creatinine 1.1 mg/dL (0.6-1.0) Estimated GFR (Cockcroft-Gault) 48.8 Glucose Level 161 mg/dL (70-99) Calcium Level 7.8 mg/dL (8.5-10.1) Test 01/01/20 18:34 01/01/20 23:46 Glucose (Fingerstick) 137 mg/dL (70-99) 203 mg/dL (70-99) Laboratory Tests Test 01/01/20 11:29 01/01/20 18:34 01/01/20 23:46 Glucose (Fingerstick) 173 mg/dL (70-99) 137 mg/dL (70-99) 203 mg/dL (70-99) Medications Active Scripts Medications Dose Route/Sig Max Daily Dose Days Date Category Metformin Hcl Er (Metformin Hcl) 500 Mg Tab.er.24h 500 Mg PO BIDWMEALS 12/30/19 Reported Zinc Sulfate 220 Mg Tablet 1 Tab PO DAILY 30 9/9/20 Reported Famotidine 20 Mg Tablet 20 Mg PO HS 12/30/19 Reported Dulcolax (Bisacodyl) 5 Mg Tablet.dr 2 Tab PO UD 1 12/30/19 Reported [Ascorbic Acid] 500 Mg PO BID 05/12/17 Reported Vitamin D (Cholecalciferol (Vitamin D3)) 2,000 Unit Capsule 2,000 Unit PO DAILY 01/05/16 Reported Tylenol (Acetaminophen) 325 Mg Tablet 650 Mg PO PRN Q6HRS PRN 01/05/16 Reported Polyethylene Glycol 3350 17 Gm Powd.pack 17 Gm PO DAILY 01/05/16 Reported Milk Of Magnesia (Magnesium Hydroxide) 400 Mg/5 Ml Oral.susp 400 Mg PO PRN DAILY PRN 01/05/16 Reported Linzess (Linaclotide) 145 Mcg Capsule 145 Mcg PO DAILY 01/05/16 Reported Escitalopram Oxalate 10 Mg Tablet 10 Mg PO DAILY 01/05/16 Reported Lacto-Pectin Capsule (Lactobac. No.33/B.breve,Longum) 1 Each Capsule 1 Each PO BID 01/05/16 Reported Eye Vitamin-Minerals Tablet (Vit A/C/E AC/Znox/Cupric Oxide) 1 Each Tablet 1 Each PO BID 01/05/16 Reported D3-50 (Cholecalciferol (Vitamin D3)) 50,000 Unit Capsule 50,000 Unit PO QM 01/05/16 Reported Centrum Silver Tablet (Multivits-Min/Fa/Lycopene/Lut) 1 Each Tablet 1 Each PO DAILY 01/05/16 Reported Baclofen 20 Mg Tablet 20 Mg PO BID 01/05/16 Reported Amlodipine Besylate 10 Mg Tablet 10 Mg PO DAILY 01/05/16 Reported Impression . IMPRESSION: 1. Acute hypoxemic respiratory failure. 2. Septic shock. 3. Marked electrolyte derangement with hypernatremia and hypokalemia. 4. Acute on chronic renal disease. 5. Multiple comorbidities including advanced stage multiple sclerosis. 6. Metabolic and toxic encephalopathy. 7. Recent [id number]-2 positivity. 8. History of methicillin-resistant Staph aureus. 9. Venous Dopplers of lower extremities no evidence of DVT Plan . 02 comfort care morphine ativan brother who is the D POA agrees with comfort care will sign off will be available for any help ADOLFO COLIN MD Jan 02, 2020 07:05
[2020-01-02 07:16] LABS: BASO % 0 % (0-3); EOS % 0 % (0-3); HEMATOCRIT 30.8 % (36.0-47.0); HEMOGLOBIN 9.4 g/dL (12.0-15.5); LYMPH # 1.1 x10^3/uL (1.0-4.8); LYMPH % 6 % (24-48); MEAN CORPUSCULAR HEMOGLOBIN 25 pg (25-35); MEAN CORPUSCULAR HGB CONC 31 g/dL (31-37); MEAN CORPUSCULAR VOLUME 81 fL (79-100); MONO # 0.5 x10^3/uL (0.0-1.1); MONO % 3 % (0-9); NEUT # 16.6 x10^3/uL (1.8-7.7); NEUT % 91 % (31-73); PLATELET COUNT 122 x10^3/uL (140-400); RED CELL DISTRIBUTION WIDTH 20.2 % (11.5-14.5); WHITE BLOOD COUNT 18.2 x10^3/uL (4.0-11.0)
[2020-01-02] MEDS: MORPHINE SULFATE 30 ML IV PRN (07:42)
[2020-01-02] MEDS: ANTI-COAG MONITOR BY PHARMACY. MC PRN ×2 (09:33→09:34)
--- NOTE | 2020-01-02 10:18 | PDOC ---
DATE OF SERVICE DATE: 01/02/20 TIME: 10:16 SUBJECTIVE ROS CVS: [] Orthopnea, [] CP RESP: [] SOB, [] MANCILLA GI: [] Nausea, [] Vomiting : [] Dysuria, [] Urgency OBJECTIVE Vital Signs Vital Signs Date Time Temp Pulse Resp B/P (MAP) Pulse Ox O2 Delivery O2 Flow Rate FiO2 01/02/20 08:00 Non-Rebreather 15.0 01/02/20 08:00 97.2 110 23 82 97.2 I & 0 Intake and Output 01/02/20 07:00 Intake Total 3009.56 ml Balance 3009.56 ml Intake IV Total 3009.56 ml # Voids 6 # Bowel Movements 1 PHYSICAL EXAM Physical Exam CONSTITUTIONAL: She is alert and NAD HEENT: She has normal conjunctivae. Oral cavity, pharynx was dry. NECK: Without JVD. HEART: S1, S2. LUNGS: Some mild crackles, right greater than left. ABDOMEN: Soft, no guarding or rebound. SKIN: Without generalized signs of rash. EXTREMITIES: No clubbing, cyanosis. Her legs are contracted. IV sites, she has a right groin triple lumen catheter. NEUROLOGIC: She is alert DIAGNOSIS/ASSESSMENT Assessment & Plan ACUTE HYPOXIC RESP FAILURE PROB COVID 19 PNEUMONIA YARI DUE TO VOLUME DEPLETION HYPERNATREMIA HYPOKALEMIA PLAN REPLETE K ANTIBIOTICS PULM SUPPORT FREE WATER IN THE FORM OF D5W MAY NEED TO GIVE K SEPARATELY-ADDING ELECTROLYTES TO D5W DECREASES AVAILABLE FREE WATER LABS IN AM WILL FOLLOW PT IS A DNR NOT A DIALYSIS CANDIDATE IF RENAL FXN DETERIORATES COMMENT/RELEVANT DATA Meds Current Medications Medications (Trade) Dose Ordered Sig/Sudha Start Time Stop Time Status Last Admin Dose Admin Acetaminophen (Tylenol Supp) 650 mg PRN Q6HRS PRN 12/31/19 09:15 12/31/19 09:37 650 MG Cefepime HCl (Maxipime) 2 gm 1X ONCE 12/30/19 09:45 12/30/19 09:46 DC 12/30/19 10:55 2 GM Daptomycin 320 mg/ Sodium Chloride 50 ml @ 100 mls/hr Q24H 12/31/19 08:00 01/01/20 09:25 100 MLS/HR Dextrose (Dextrose 50%-Water Syringe) 12.5 gm PRN Q15MIN PRN 12/31/19 11:15 Dopamine HCl/ Dextrose 250 ml @ 10.313 mls/ hr 1X ONCE 12/30/19 13:00 12/31/19 13:14 DC 12/30/19 13:12 10.313 MLS/HR Enoxaparin Sodium (Lovenox 60mg Syringe) 60 mg Q24H 12/30/19 17:00 01/01/20 18:24 60 MG Enoxaparin Sodium (Lovenox Per Pharmacy Treatment Dosing) 1 each PRN DAILY PRN 12/30/19 17:00 Fentanyl Citrate (Fentanyl 2ml Vial) 25 mcg PRN Q3HRS PRN 12/31/19 17:15 01/01/20 11:24 25 MCG Hydrocortisone Sodium Succinate (Solu-CORTEF) 250 mg 1X ONCE 12/31/19 11:00 12/31/19 11:03 DC 12/31/19 12:07 250 MG Info (Anti-Coagulation Monitoring By Pharmacy) 1 each PRN DAILY PRN 01/02/20 08:45 01/02/20 09:34 1 EACH Insulin Human Lispro (HumaLOG) 0-7 UNITS Q6H 12/31/19 12:00 01/01/20 23:59 2 UNITS Levofloxacin/ Dextrose 150 ml @ 100 mls/hr 1X ONCE 12/30/19 09:45 12/30/19 11:14 DC 12/30/19 11:00 100 MLS/HR Linezolid/Dextrose 300 ml @ 300 mls/hr Q12HR 12/31/19 09:00 01/01/20 22:04 300 MLS/HR Meropenem 500 mg/ Sodium Chloride 50 ml @ 100 mls/hr Q6HRS 01/01/20 12:00 01/02/20 05:27 100 MLS/HR Morphine Sulfate 30 ml @ 0 mls/hr CONT PRN PRN 01/01/20 13:15 01/02/20 07:42 5 MLS/HR Naloxone HCl (Narcan) 0.4 mg PRN Q2MIN PRN 01/01/20 13:15 Norepinephrine Bitartrate 8 mg/ Dextrose 258 ml @ 10.643 mls/ hr CONT PRN 12/30/19 17:15 12/31/19 05:53 10.643 MLS/HR Ondansetron HCl (Zofran) 4 mg PRN Q8HRS PRN 12/30/19 13:00 12/31/19 12:59 DC Pantoprazole Sodium (PROTONIX VIAL for IV PUSH) 40 mg DAILYAC 12/31/19 11:30 01/01/20 09:24 40 MG Potassium Chloride 40 meq/ Dextrose 1,020 ml @ 100 mls/hr [id number] 12/31/19 07:00 01/01/20 22:07 100 MLS/HR Potassium Chloride/Water 100 ml @ 100 mls/hr Q1H 12/31/19 18:30 12/31/19 20:29 DC 12/31/19 20:22 100 MLS/HR Sodium Chloride 1,000 ml @ 25 mls/hr Q24H 01/01/20 13:14 Lab Laboratory Tests Test 01/01/20 11:29 01/01/20 18:34 01/01/20 23:46 01/02/20 06:10 Glucose (Fingerstick) 173 mg/dL (70-99) 137 mg/dL (70-99) 203 mg/dL (70-99) White Blood Count 18.2 x10^3/uL (4.0-11.0) Red Blood Count 3.80 x10^6/uL (3.50-5.40) Hemoglobin 9.4 g/dL (12.0-15.5) Hematocrit 30.8 % (36.0-47.0) Mean Corpuscular Volume 81 fL (79-100) Mean Corpuscular Hemoglobin 25 pg (25-35) Mean Corpuscular Hemoglobin Concent 31 g/dL (31-37) Red Cell Distribution Width 20.2 % (11.5-14.5) Platelet Count 122 x10^3/uL (140-400) Neutrophils (%) (Auto) 91 % (31-73) Lymphocytes (%) (Auto) 6 % (24-48) Monocytes (%) (Auto) 3 % (0-9) Eosinophils (%) (Auto) 0 % (0-3) Basophils (%) (Auto) 0 % (0-3) Neutrophils # (Auto) 16.6 x10^3/uL (1.8-7.7) Lymphocytes # (Auto) 1.1 x10^3/uL (1.0-4.8) Monocytes # (Auto) 0.5 x10^3/uL (0.0-1.1) Eosinophils # (Auto) 0.0 x10^3/uL (0.0-0.7) Basophils # (Auto) 0.0 x10^3/uL (0.0-0.2) Results All relevant outside records, renal labs, imaging studies, telemetry/EKG's were reviewed. Justicifation of Admission Dx: Justifications for Admission: Justification of Admission Dx: Yes Respiratory Failure: Severe Resp Distress DARELL MCCALLUM MD Jan 02, 2020 10:18
--- NOTE | 2020-01-02 10:20 | NUR ---
Notified patient's family of hypotension and hypoxia despite being on non-rebreather, discussed comfort care extensively. Patient's brother and DPOA agreed with going comfort care only, video call made prior to removing non-rebreather. Patient at 0923, brother notified and home is [facility]. Patient is not a candidate for donation per [facility] labor relations representative. Patient's belongings (foot boots and neck pillow) were sent down with body to the [facility].
--- NOTE | 2020-01-02 10:33 | DS ---
DATE OF DISCHARGE: 01/02/2020 SUMMARY The patient is a 74-year-old female patient, a resident at [facility], who was admitted with acute hypoxic respiratory failure, severe sepsis and acute kidney injury. She had recent history of COVID-19 infection. The patient has progressive multiple sclerosis. Despite aggressive treatment with IV antibiotics and IV fluid, patient continued to deteriorate. She required Levophed and 100% nonrebreather mask. We spoke with her brother regarding her poor prognosis and she was switched to comfort care. She was started on morphine and Ativan and she basically continued to deteriorate and she is already a DNR/DNI and basically the patient was pronounced at around 9:00 this morning. CAUSE OF : 1. Cardiopulmonary arrest. 2. Acute hypoxic respiratory failure. 3. Sepsis, source of which is not clear. 4. Progressive multiple sclerosis with marked muscle wasting and fixed flexion contracture. TOMI KAYE MD DR: ALKA/milly JOB#: [id number] / [id number]
== END 2020-01-02 09:23 | disposition expired | DRG 871 ==
LOC: ER 09:25 → 1 WEST ICU 12:41
PROVIDERS: ADMIT Internal Medicine; ATTEND Internal Medicine
DX: A41.9 Sepsis, unspecified organism (principal); J96.01 Acute respiratory failure with hypoxia; G82.50 Quadriplegia, unspecified; R65.21 Severe sepsis with septic shock; G93.41 Metabolic encephalopathy; U07.1 COVID-19; J12.89 Other viral pneumonia; N17.9 Acute kidney failure, unspecified; E87.0 Hyperosmolality and hypernatremia; I46.9 Cardiac arrest, cause unspecified; F32.9 Major depressive disorder, single episode, unspecified; F41.9 Anxiety disorder, unspecified; G35 Multiple sclerosis; G89.4 Chronic pain syndrome; K21.9 Gastro-esophageal reflux disease without esophagitis; I25.10 Atherosclerotic heart disease of native coronary artery without angina pectoris; N31.9 Neuromuscular dysfunction of bladder, unspecified; Z66 Do not resuscitate; E87.6 Hypokalemia; N18.9 Chronic kidney disease, unspecified; E11.22 Type 2 diabetes mellitus with diabetic chronic kidney disease; I12.9 Hypertensive chronic kidney disease with stage 1 through stage 4 chronic kidney disease, or unspecified chronic kidney disease; F03.90 Unspecified dementia, unspecified severity, without behavioral disturbance, psychotic disturbance, mood disturbance, and anxiety; E86.9 Volume depletion, unspecified; Z51.5 Encounter for palliative care; M62.50 Muscle wasting and atrophy, not elsewhere classified, unspecified site; M24.50 Contracture, unspecified joint; Z88.5 Allergy status to narcotic agent; Z88.0 Allergy status to penicillin; Z88.2 Allergy status to sulfonamides; Z88.1 Allergy status to other antibiotic agents; Z93.3 Colostomy status; Z91.041 Radiographic dye allergy status; Z79.01 Long term (current) use of anticoagulants; Z86.19 Personal history of other infectious and parasitic diseases; Z87.440 Personal history of urinary (tract) infections; Z86.14 Personal history of Methicillin resistant Staphylococcus aureus infection; Z86.73 Personal history of transient ischemic attack (TIA), and cerebral infarction without residual deficits
CPT/HCPCS: 36415; 36556; 36600; 71045; 78580; 80048; 80053; 82550; 82728; 82805; 82962; 83605; 83615; 83690; 83880; 84145; 84484; 85007; 85025; 85027; 85379; 85384; 85610; 85730; 86140; 87040; 87205; 93005; 93970; 96361; 96365; 96366; 96367; 96368; 96375; 99285; A9540; C9113; J0692; J0878; J1265; J1650; J1720; J1815; J1956; J2020; J2185; J2270; J3010; J3480; J3490; J7030; J7060; G0378